=== PATIENT | male | born 1965 | race African-American/Black ===

== ENCOUNTER 2017-05-08 13:27 | Inpatient (IN) | payer SELFPAY ==
[2017-05-08] VITALS (13 sets, daily range): BP systolic 142–181; BP diastolic 76–131; PULSE 79–154; RESP 20–24; TEMP 98.7; O2SAT 88–98
[~2017-05-08] VITALS: Ht 182.9 cm; Wt 144.0 kg
[~2017-05-08 13:27] MED LIST: AZIT250T3 PO; CEFT500T3 PO; HYDR25TA5 PO; LISI-515 PO; PRED10PA PO
[2017-05-08] MEDS ORDERED: SODIUM CHLORIDE 0.9% FLUSH 10 ML FLUSH IVF PRN (13:45)
[2017-05-08] MEDS ORDERED: DILTIAZEM HCL 25 MG/5 ML VIAL IV ONE ×2 (13:45)
--- NOTE | 2017-05-08 14:13 | RADRPT ---
EXAM DATE/TIME: 05/08/2017 13:53 [facility] COMPARISON: CHEST PA & LAT, May 12, 2016, 6:48. INDICATIONS : Chest pain. MEDICAL HISTORY : None. SURGICAL HISTORY : None. ENCOUNTER: Initial ACUITY: 1 day PAIN SCORE: 10/10 LOCATION: Bilateral chest FINDINGS: A single view of the chest demonstrates the lungs to be symmetrically aerated without evidence of mas s, infiltrate or effusion. There is some prominence of the pulmonary vasculature suggestive of pulmon dinorah venous congestion. There is moderate cardiomegaly. This is not significantly changed compared to the prior exam. The bony structures are stable.. CONCLUSION: 1. Pulmonary venous congestion 2. Moderate stable cardiomegaly. David Phan MD on May 08, 2017 at 14:11 Board Certified Radiologist. This report was verified electronically.
[2017-05-08 14:19] LABS: AUTOMATED NEUTROPHIL # 9.7 TH/MM3 (1.8-7.7); BASOPHIL # 0.1 TH/MM3 (0-0.2); BASOPHIL % 0.5 % (0.0-2.0); EOSINOPHIL # 0.1 TH/MM3 (0-0.4); EOSINOPHIL % 0.5 % (0.0-4.0); HEMATOCRIT 40.7 % (39.0-51.0); HEMO FLAGS DIFF FINAL; LYMPH % 13.1 % (9.0-44.0); LYMPHOCYTE # 1.7 TH/MM3 (1.0-4.8); MEAN CELL VOLUME 81.8 FL (80.0-100.0); MEAN CORPUSCULAR HEMOGLOBIN 25.1 PG (27.0-34.0); MEAN CORPUSCULAR HGB CONC 30.7 % (32.0-36.0); MONO % 10.1 % (0.0-8.0); NEUT % 75.8 % (16.0-70.0); PLATELET COUNT 406 TH/MM3 (150-450); RED BLOOD COUNT 4.98 MIL/MM3 (4.50-5.90); RED CELL DISTRIBUTION WIDTH 14.7 % (11.6-17.2); WHITE BLOOD COUNT 12.7 TH/MM3 (4.0-11.0)
[2017-05-08 14:29] LABS: APTT (PATIENT) 24.9 SEC (24.3-30.1); INTERNATIONAL NORMALIZED RATIO 1.2 RATIO
[2017-05-08 14:41] LABS: ANION GAP 4 MEQ/L (5-15); BICARBONATE 34.9 MEQ/L (21.0-32.0); BLOOD UREA NITROGEN 15 MG/DL (7-18); CHLORIDE 102 MEQ/L (98-107); GLOMERULAR FILTRATION RATE 68 ML/MIN (>89); MAGNESIUM 2.3 MG/DL (1.5-2.5); POTASSIUM 4.2 MEQ/L (3.5-5.1); SODIUM (NA) 141 MEQ/L (136-145)
[2017-05-08 14:46] LABS: CREATINE KINASE 223 U/L (39-308)
[2017-05-08 14:58] LABS: CKMB 3.4 NG/ML (0.5-3.6)
--- NOTE | 2017-05-08 15:26 | PD ---
HPI Chief Complaint: Respiratory Symptoms Time Seen by Provider: 13:43 Travel History International Travel<30 days: No Contact w/Intl Traveler<30days: No Traveled to known affect area: No History of Present Illness HPI 51-year-old male arrives with a complaint of chest pain and shortness of breath. Duration 3 days. He reports orthopnea and dyspnea on exertion. The orthopnea is chronic in nature for the patient. He also notes what he believes to be a generalized increase in lower extremity swelling for him of unknown acuity. He denies follow-up with the doctor/primary care. He was last seen here about 2 years ago and has now seen a doctor since. No additional complaint. No fever or coughing. No smoking history. PFSH Past Medical History Cancer: No Cardiovascular Problems: Yes Congestive Heart Failure: Yes Coronary Artery Disease: No Diabetes: No Endocrine: No Genitourinary: No Immune Disorder: No Musculoskeletal: No Neurologic: No Psychiatric: No Reproductive: No Respiratory: Yes ?: Not Social History Alcohol Use: No Tobacco Use: No Substance Use: Yes (MARIJUANA) Allergies-Medications (Allergen,Severity, Reaction): Coded Allergies: No Known Allergies (Unverified , 05/11/16) Reported Meds & Prescriptions Reported Meds & Active Scripts Active Prednisone (21) 10 mg tab Dose Pack (Prednisone) 10 Mg Pack 10 Mg PO DIRECTED Ceftin (Cefuroxime Axetil) 500 Mg Tab 500 Mg PO BID Azithromycin 250 Mg Tab 250 Mg PO DAILY Lisinopril 20 Mg Tab 40 Mg PO DAILY Hydrochlorothiazide 25 Mg Tab 25 Mg PO DAILY Review of Systems Except as stated in HPI: all other systems reviewed are Neg General / Constitutional: No: Fever Physical Exam Narrative GENERAL: 51-year-old male well-nourished well-developed SKIN: Warm and dry. HEAD: Atraumatic. Normocephalic. EYES: Pupils equal and round. No scleral icterus. No injection or drainage. ENT: No nasal bleeding or discharge. Mucous membranes pink and moist. NECK: Trachea midline. No JVD. CARDIOVASCULAR: Regular rate and rhythm. RESPIRATORY: Full sentences. The lungs sound clear. GASTROINTESTINAL: Abdomen soft, non-tender, nondistended. Hepatic and splenic margins not palpable. MUSCULOSKELETAL: Minimal edema of the bilateral lower extremities. No erythema or marked asymmetry. NEUROLOGICAL: Awake and alert. No obvious cranial nerve deficits. Motor grossly within normal limits. Five out of 5 muscle strength in the arms and legs. Normal speech. PSYCHIATRIC: Appropriate mood and affect; insight and judgment normal. Data Data Last Documented VS Vital Signs Date Time Temp Pulse Resp B/P (MAP) Pulse Ox O2 Delivery O2 Flow Rate FiO2 05/08/17 14:29 108 20 143/76 (98) 98 Nasal Cannula 2.00 05/08/17 13:28 98.7 Vital signs reviewed initial heart rate 150 Orders Orders Electrocardiogram (05/08/17 13:43) Basic Metabolic Panel (Bmp) (05/08/17 13:43) B-Type Natriuretic Peptide (05/08/17 13:43) Ckmb (Isoenzyme) Profile (05/08/17 13:43) Complete Blood Count With Diff (05/08/17 13:43) Magnesium (Mg) (05/08/17 13:43) Prothrombin Time / Inr (Pt) (05/08/17 13:43) Act Partial Throm Time (Ptt) (05/08/17 13:43) Troponin I (05/08/17 13:43) Chest, Single Ap (05/08/17 13:43) Ecg Monitoring (05/08/17 13:43) Bilateral Bp Monitoring (05/08/17 13:43) Iv Access Insert/Monitor (05/08/17 13:43) Oximetry (05/08/17 13:43) Oxygen Administration (05/08/17 13:43) Sodium Chloride 0.9% Flush (Ns Flush) (05/08/17 13:45) Diltiazem Inj (Cardizem Inj) (05/08/17 13:45) Diltiazem Inj (Cardizem Inj) (05/08/17 13:45) CKMB (05/08/17 13:40) CKMB% (05/08/17 13:40) Place In Observation (05/08/17 ) Activity Oob With Assistance (05/08/17 15:41) Intake + Output 06,14,22 (05/08/17 15:41) Notify Dr: Other (05/08/17 15:41) Resp Oxygen Kale C Titrat 1-4 L (05/08/17 ) Sodium Chloride 0.9% Flush (Ns Flush) (05/08/17 15:45) Sodium Chloride 0.9% Flush (Ns Flush) (05/08/17 21:00) Diltiazem Inj (Cardizem Inj) (05/08/17 15:45) Ct Pulmonary Angiogram (05/08/17 15:41) Admit Order (Ed Use Only) (05/08/17 ) Medical Staff Physician / Telemetry BRANDON.Q8H (05/08/17 15:41) Vital Signs (Adult) Q4H (05/08/17 15:41) Diet Npo (05/08/17 Dinner) Activity Bed Rest (05/08/17 15:41) Labs Laboratory Tests Test 05/08/17 13:40 White Blood Count 12.7 TH/MM3 Red Blood Count 4.98 MIL/MM3 Hemoglobin 12.5 GM/DL Hematocrit 40.7 % Mean Corpuscular Volume 81.8 FL Mean Corpuscular Hemoglobin 25.1 PG Mean Corpuscular Hemoglobin Concent 30.7 % Red Cell Distribution Width 14.7 % Platelet Count 406 TH/MM3 Mean Platelet Volume 7.6 FL Neutrophils (%) (Auto) 75.8 % Lymphocytes (%) (Auto) 13.1 % Monocytes (%) (Auto) 10.1 % Eosinophils (%) (Auto) 0.5 % Basophils (%) (Auto) 0.5 % Neutrophils # (Auto) 9.7 TH/MM3 Lymphocytes # (Auto) 1.7 TH/MM3 Monocytes # (Auto) 1.3 TH/MM3 Eosinophils # (Auto) 0.1 TH/MM3 Basophils # (Auto) 0.1 TH/MM3 CBC Comment DIFF FINAL Differential Comment Prothrombin Time 12.0 SEC Prothromb Time International Ratio 1.2 RATIO Activated Partial Thromboplast Time 24.9 SEC Blood Urea Nitrogen 15 MG/DL Creatinine 1.33 MG/DL Random Glucose 83 MG/DL Calcium Level 8.4 MG/DL Magnesium Level 2.3 MG/DL Sodium Level 141 MEQ/L Potassium Level 4.2 MEQ/L Chloride Level 102 MEQ/L Carbon Dioxide Level 34.9 MEQ/L Anion Gap 4 MEQ/L Estimat Glomerular Filtration Rate 68 ML/MIN Total Creatine Kinase 223 U/L Creatine Kinase MB 3.4 NG/ML Troponin I 0.06 NG/ML B-Type Natriuretic Peptide 95 PG/ML MDM Medical Decision Making Medical Screen Exam Complete: Yes Emergency Medical Condition: Yes Medical Record Reviewed: Yes Differential Diagnosis NSTEMI, unstable angina, coronary vasospasm, PE, PTX, aortic dissection, pericarditis, myocarditis, endocarditis, PNA, esophageal disease, aneurysm, musculoskeletal etiologies, anxiety, cocaine/sympathomimetic abuse Narrative Course Patient has atrial fibrillation or possibly atrial flutter. He received diltiazem 20 mg followed by diltiazem 15 mg. Heart rate decreased to about 100 after the first dose and then increased to about 120 and then went back up to 150. A drip started. The patient will be admitted for continuous diltiazem infusion. CBC & BMP Diagram 05/08/17 13:40 Calcium Level 8.4 L, Magnesium Level 2.3 Last 24 hours Impressions Chest X-Ray 05/08/17 1343 Signed Impressions: Service Date/Time: Monday, May 08, 2017 13:53 - CONCLUSION: 1. Pulmonary venous congestion 2. Moderate stable cardiomegaly. David Phan MD Case discussed with Dr. Mcgill for [facility] Critical Care Narrative Aggregate critical care time was 45 minutes. Time to perform other separately billable procedures was not included in the critical care time. My time did not include minutes spent treating any other patients simultaneously or on activities that did not directly contribute to the patient's treatment. The services I provided to this patient were to treat and/or prevent clinically significant deterioration that could result in: Dysrhythmia, cardiopulmonary arrest I provided critical care services requiring my management, as noted below: Chart data review, documentation time, medication orders and management, vital sign assessments/reviewing monitor data, ordering and reviewing lab tests, ordering and interpreting/reviewing x-rays and diagnostic studies, care of the patient and discussion of the patient with the admitting physicians. Diagnosis Primary Impression: Atrial flutter Qualified Codes: I48.92 - Unspecified atrial flutter Additional Impression: Elevated troponin Admitting Information Admitting Physician Requests: Admit Dylon Lyon MD May 08, 2017 15:26
[2017-05-08] MEDS ORDERED: SODIUM CHLORIDE 0.9% FLUSH 10 ML FLUSH IV FLUSH PRN (15:45)
[2017-05-08] MEDS ORDERED: IOHEXOL 350 MG/ML 10 ML VIAL (for RAD DIAG) IVCONTRAST ONE (15:45)
[2017-05-08] MEDS ORDERED: DILTIAZEM INJ 125 MG in SODIUM CHLORIDE 0.9% INJ 100 ML IV PRN (15:45)
[2017-05-08] MEDS ORDERED: NALOXONE HCL 0.4 MG/ML AMP IV PUSH PRN (16:15)
[2017-05-08] MEDS ORDERED: ASPIRIN EC 325 MG TABEC PO ONE (16:15)
[2017-05-08] MEDS ORDERED: SENNOSIDES 8.6 MG TAB PO PRN (16:15)
[2017-05-08] MEDS ORDERED: LACTULOSE SYRUP 20 GM/30 ML CUP PO PRN (16:15)
[2017-05-08] MEDS ORDERED: ACETAMINOPHEN 325 MG TAB PO PRN ×2 (16:15)
[2017-05-08] MEDS ORDERED: RESP: ALBUTEROL 0.63 MG/3 ML NEB (PRN) NEB (16:15)
[2017-05-08] MEDS ORDERED: NITROGLYCERIN 0.4 MG SL 25 TABS/BTL SL PRN (16:15)
[2017-05-08] MEDS ORDERED: BISACODYL 10 MG SUPP RECTAL PRN (16:15)
[2017-05-08] MEDS ORDERED: ONDANSETRON HCL 4 MG/2 ML VIAL IVP PRN (16:15)
[2017-05-08] MEDS ORDERED: FUROSEMIDE 40 MG/4 ML VIAL IV PUSH ONE (16:15)
--- NOTE | 2017-05-08 16:15 | HHI.HP ---
[facility] No Primary Care Physician Admission Diagnosis Afib RVR; Elevated Tn Diagnoses: Chief Complaint: Chest pain and shortness of breath Travel History International Travel<30 Days: No Contact w/Intl Traveler <30 Da: No Traveled to Known Affected Are: No History of Present Illness This is a 51-year-old male with a history of morbid obesity and COPD. He presents to the emergency department complaining of chest pain and shortness of breath. States he has three-day history of intermittent right sided sharp moderate to severe exertional chest pain lasting for a few minutes without radiation and associated nausea, palpitations, dizziness and diaphoresis. He also has chronic dyspnea on exertion worse lately associated with orthopnea. He also has chronic bilateral lower extremity swelling. No fever and chills. He also started having productive cough with whitish phlegm and wheezing. All other systems reviewed negative. In the emergency department, EKG shows atrial flutter with RVR and received IV diltiazem 20 mg followed by 15 mg still in RVR. Denies illicit drug use except marijuana Review of Systems Except as stated in HPI: all other systems reviewed are Neg Past Family Social History Past Medical History as previously mentioned Past Surgical History Denies Reported Medications None Allergies: Coded Allergies: No Known Allergies (Unverified , 05/11/16) Family History Mother with CAD and stroke Social History Smokes marijuana occasional alcohol use Physical Exam Vital Signs Vital Signs Date Time Temp Pulse Resp B/P (MAP) Pulse Ox O2 Delivery O2 Flow Rate FiO2 05/08/17 14:29 108 20 143/76 (98) 98 Nasal Cannula 2.00 05/08/17 13:57 123 20 176/111 (132) 98 Nasal Cannula 2.00 154/94 (114) 05/08/17 13:54 98 Nasal Cannula 2.00 05/08/17 13:47 98 Nasal Cannula 2.00 05/08/17 13:43 154 22 181/120 (140) 90 05/08/17 13:28 98.7 153 24 181/131 (148) 88 Physical Exam GENERAL: This is an obese, well-developed patient, in no apparent distress. SKIN: No rashes, ecchymoses or lesions. Cool and dry. HEAD: Atraumatic. Normocephalic. No temporal or scalp tenderness. EYES: Pupils equal round and reactive. Extraocular motions intact. No scleral icterus. No injection or drainage. ENT: Nose without bleeding, purulent drainage or septal hematoma. Throat without erythema, tonsillar hypertrophy or exudate. Uvula midline. Airway patent. NECK: Trachea midline. JVD difficult to evaluate secondary to thick neck. Supple, nontender, no meningeal signs. CARDIOVASCULAR: Distant heart sounds tachycardic RESPIRATORY: Decreased Breath sounds equal bilaterally. No wheezes, rales, or rhonchi. GASTROINTESTINAL: Abdomen soft, non-tender, nondistended. No guarding. Has a body wall edema MUSCULOSKELETAL: Extremities without clubbing, cyanosis but with bilateral lower extremity pitting edema. No joint tenderness, effusion, or edema noted. No calf tenderness. Negative Homans sign bilaterally. NEUROLOGICAL: Awake and alert. Cranial nerves II through XII intact. Motor and sensory grossly within normal limits. Five out of 5 muscle strength in all muscle groups. Normal speech. Laboratory Laboratory Tests Test 05/08/17 13:40 White Blood Count 12.7 Red Blood Count 4.98 Hemoglobin 12.5 Hematocrit 40.7 Mean Corpuscular Volume 81.8 Mean Corpuscular Hemoglobin 25.1 Mean Corpuscular Hemoglobin Concent 30.7 Red Cell Distribution Width 14.7 Platelet Count 406 Mean Platelet Volume 7.6 Neutrophils (%) (Auto) 75.8 Lymphocytes (%) (Auto) 13.1 Monocytes (%) (Auto) 10.1 Eosinophils (%) (Auto) 0.5 Basophils (%) (Auto) 0.5 Neutrophils # (Auto) 9.7 Lymphocytes # (Auto) 1.7 Monocytes # (Auto) 1.3 Eosinophils # (Auto) 0.1 Basophils # (Auto) 0.1 CBC Comment DIFF FINAL Differential Comment Prothrombin Time 12.0 Prothromb Time International Ratio 1.2 Activated Partial Thromboplast Time 24.9 Blood Urea Nitrogen 15 Creatinine 1.33 Random Glucose 83 Calcium Level 8.4 Magnesium Level 2.3 Sodium Level 141 Potassium Level 4.2 Chloride Level 102 Carbon Dioxide Level 34.9 Anion Gap 4 Estimat Glomerular Filtration Rate 68 Total Creatine Kinase 223 Creatine Kinase MB 3.4 Troponin I 0.06 B-Type Natriuretic Peptide 95 Result Diagram: 05/08/17 1340 05/08/17 1340 Imaging Last Impressions Chest X-Ray 05/08/17 1343 Signed Impressions: Service Date/Time: Monday, May 08, 2017 13:53 - CONCLUSION: 1. Pulmonary venous congestion 2. Moderate stable cardiomegaly. MD Kisha Wilkes VTE Risk Assessment Caprinbobby VTE Risk Assessment: Mod/High Risk (score >= 2) Caprini Risk Assessment Model Point Value = 1 Point Value = 2 Point Value = 3 Point Value = 5 Age 41-60 Minor surgery BMI > 25 kg/m2 Swollen legs Varicose veins or History of unexplained or recurrent spontaneous Oral contraceptives or hormone replacement Sepsis (< 1 month) Serious lung disease, including pneumonia (< 1 month) Abnormal pulmonary function Acute myocardial infarction Congestive heart failure (< 1 month) History of inflammatory bowel disease Medical patient at bed rest Age 61-74 Arthroscopic surgery Major open surgery (> 45 min) Laparoscopic surgery (> 45 min) Malignancy Confined to bed (> 72 hours) Immobilizing plaster cast Central venous access Age >= 75 History of VTE Family history of VTE Factor V Leiden Prothrombin [id number] Lupus anticoagulant Anticardiolipin antibodies Elevated serum homocysteine Heparin-induced thrombocytopenia Other congenital or acquired thrombophilia Stroke (< 1 month) Elective arthroplasty Hip, pelvis, or leg fracture Acute spinal cord injury (< 1 month) Prophylaxis Regimen Total Risk Factor Score Risk Level Prophylaxis Regimen 0-1 Low Early ambulation 2 Moderate Order ONE of the following: *Sequential Compression Device (SCD) *Heparin 5000 units SQ BID 3-4 Higher Order ONE of the following medications: *Heparin 5000 units SQ TID *Enoxaparin/Lovenox 40 mg SQ daily (WT < 150 kg, CrCl > 30 mL/min) *Enoxaparin/Lovenox 30 mg SQ daily (WT < 150 kg, CrCl > 10-29 mL/min) *Enoxaparin/Lovenox 30 mg SQ BID (WT < 150 kg, CrCl > 30 mL/min) AND/OR *Sequential Compression Device (SCD) 5 or more Highest Order ONE of the following medications: *Heparin 5000 units SQ TID (Preferred with Epidurals) *Enoxaparin/Lovenox 40 mg SQ daily (WT < 150 kg, CrCl > 30 mL/min) *Enoxaparin/Lovenox 30 mg SQ daily (WT < 150 kg, CrCl > 10-29 mL/min) *Enoxaparin/Lovenox 30 mg SQ BID (WT < 150 kg, CrCl > 30 mL/min) AND *Sequential Compression Device (SCD) Assessment and Plan Problem List: (1) Atrial flutter ICD Code: I48.92 - Unspecified atrial flutter Assessment and Plan This is a 51-year-old male who presents with exertional chest pain for 3 days and worsening dyspnea on exertion associated with orthopnea and bilateral lower extremity swelling. Chest x-ray on independent review shows pulmonary congestion and cardiomegaly. EKG tracing interpreted by me shows atrial flutter with RVR and ST depression in the inferolateral leads New onset atrial flutter with RVR. Start Cardizem drip keep heart rate less than 100. We'll also start Cardizem by mouth. Check TSH, urine drug screen, echocardiogram and follow-up CTA results. [id number] score of 1-2(CHF and possible CAD). Start aspirin. Consult cardiology New onset CHF likely secondary to above. Patient has body wall edema. Start IV diuresis with Lasix Chest pain with troponin elevation likely secondary to above. Start asa and trend enzymes and follow EKG. NTG and IV Morphine prn for CP Acute kidney injury. Nonoliguric. Avoid nephrotoxins. Repeat BMP and magnesium in the morning Leukocytosis likely reactive. Monitor Chronic medical conditions of COPD and obesity. Albuterol as needed. Weight reduction DVT prophylaxis with SCD and subcutaneous heparin Discussed Condition With Patient, daughter and ER staff Anuel Mcgill MD May 08, 2017 16:15
[2017-05-08] MEDS ORDERED: MORPHINE SULFATE 4 MG/ML INJ IV PUSH PRN (16:30)
--- NOTE | 2017-05-08 16:46 | RADRPT ---
EXAM DATE/TIME: 05/08/2017 16:22 [facility] COMPARISON: No previous studies available for comparison. INDICATIONS : Shortness of breath. IV CONTRAST: 74 cc Omnipaque 350 (iohexol) IV RADIATION DOSE: 23.27 CTDIvol (mGy) ; Patient body habitus MEDICAL HISTORY : Congestive hearrt failure. Hypertension. SURGICAL HISTORY : None. ENCOUNTER: Initial ACUITY: 1 week PAIN SCALE: 0/10 LOCATION: chest TECHNIQUE: Volumetric scanning of the chest was performed using a pulmonary embolism protocol MIP images were re constructed. Using automated exposure control and adjustment of the mA and/or kV according to patien t size, radiation dose was kept as low as reasonably achievable to obtain optimal diagnostic quality images. DICOM format image data is available electronically for review and comparison. Follow-up recommendations for detected pulmonary nodules are based at a minimum on nodule size and pa tient risk factors according to Fleischner Society Guidelines. FINDINGS: PULMONARY ARTERIES: No filling defects are seen in the pulmonary arteries through the segmental level. LUNGS: There is a small mild infiltrate in the posterior right lower lung with a small pleural effusion. Lef t lung is grossly clear. PLEURAE: Small right pleural effusion. MEDIASTINUM: Moderate diffuse cardiomegaly. No mediastinal adenopathy. MUSCULOSKELETAL: Within normal limits for patient age. MISCELLANEOUS: The visualized upper abdominal organs demonstrate no acute abnormality. CONCLUSION: 1. No evidence of pulmonary embolism. 2. Mild right lower lung infiltrate with small right effusion. 3. Moderate diffuse cardiomegaly. David Phan MD on May 08, 2017 at 16:43 Board Certified Radiologist. This report was verified electronically.
[2017-05-08] MEDS: DILTIAZEM INJ 125 MG in SODIUM CHLORIDE 0.9% INJ 100 ML IV SCH ×3 (17:04→18:22)
[2017-05-08] MEDS: cefTRIAXone INJ 1,000 MG in SODIUM CHLORIDE 0.9% INJ 100 ML IV SCH (18:00)
[2017-05-08] MEDS: AZITHROMYCIN INJ 500 MG in SODIUM CHLOR 0.9% 250 ML INJ 250 ML IV SCH (18:21)
[2017-05-08] MEDS: DILTIAZEM HCL 30 MG TAB PO SCH ×2 (18:21→21:23)
[2017-05-08] MEDS: HEPARIN SODIUM - SQ 10,000 UNITS/ML VIAL SQ SCH (21:23)
[2017-05-08] MEDS: SODIUM CHLORIDE 0.9% FLUSH 10 ML FLUSH IV FLUSH SCH (21:23)
[2017-05-09] VITALS (24 sets, daily range): BP systolic 134–164; BP diastolic 90–107; PULSE 71–114; RESP 22–28; TEMP 97.5–98.4; O2SAT 93–96
[2017-05-09] MEDS: DILTIAZEM INJ 125 MG in SODIUM CHLORIDE 0.9% INJ 100 ML IV SCH ×2 (01:46→10:50)
[2017-05-09] MEDS: HEPARIN SODIUM - SQ 10,000 UNITS/ML VIAL SQ SCH ×2 (08:36→21:55)
[2017-05-09] MEDS: DILTIAZEM HCL 30 MG TAB PO SCH (08:36)
[2017-05-09] MEDS: ASPIRIN EC 325 MG TABEC PO SCH (08:36)
[2017-05-09] MEDS: FUROSEMIDE 40 MG/4 ML VIAL IV PUSH SCH ×2 (08:37→17:56)
[2017-05-09] MEDS: SODIUM CHLORIDE 0.9% FLUSH 10 ML FLUSH IV FLUSH SCH ×2 (08:37→21:54)
--- NOTE | 2017-05-09 09:20 | PD.CONS ---
HPI Consult Requested By Primary Care Physician No Primary Care Physician History of Present Illness 51-year-old male with past medical history of morbid obesity and COPD. The patient presented with chest pain, shortness of breath, fatigue. The patient and his family at bedside reports that he's been having these symptoms for the past several months. Sometimes he can only walk a short distance before becoming fatigued and dyspneic. He feels the shortness breath is worse than his baseline COPD. Never a smoker. For the past few weeks he has been having a worsening productive cough. (David Baum) Review of Systems Negative except as stated in the history of present illness (David Baum) Past Family Social History Allergies: Coded Allergies: No Known Allergies (Unverified , 05/11/16) Past Medical History COPD Morbid obesity Past Surgical History Denies Reported Medications Reported Meds & Active Scripts Active Prednisone (21) 10 mg tab Dose Pack (Prednisone) 10 Mg Pack 10 Mg PO DIRECTED Ceftin (Cefuroxime Axetil) 500 Mg Tab 500 Mg PO BID Azithromycin 250 Mg Tab 250 Mg PO DAILY Lisinopril 20 Mg Tab 40 Mg PO DAILY Hydrochlorothiazide 25 Mg Tab 25 Mg PO DAILY Active Ordered Medications Current Medications Medications (Trade) Dose Ordered Sig/Patricia Route Start Time Stop Time Status Last Admin (NS Flush) 2 ml UNSCH PRN IV FLUSH 05/08/17 15:45 (NS Flush) 2 ml BID IV FLUSH 05/08/17 21:00 05/09/17 08:37 Diltiazem HCl 125 mg/Sodium Chloride 125 ml @ 5 mls/hr TITRATE IV 05/08/17 16:15 05/09/17 01:46 (Cardizem) 30 mg QID PO 05/08/17 18:00 05/09/17 08:36 (Ecotrin Ec) 325 mg DAILY PO 05/09/17 09:00 05/09/17 08:36 (Lasix Inj) 40 mg BID@,18 IV PUSH 05/09/17 09:00 05/09/17 08:37 (Nitrostat Sl) 0.4 mg Q5M PRN SL 05/08/17 16:15 (Albuterol Neb) 0.63 mg Q4HR NEB PRN NEB 05/08/17 16:15 (Heparin Inj) 5,000 units Q12HR SQ 05/08/17 21:00 05/09/17 08:36 (Tylenol) 650 mg Q4H PRN PO 05/08/17 16:15 (Zofran Inj) 4 mg Q6H PRN IVP 05/08/17 16:15 (Tylenol) 650 mg Q6H PRN PO 05/08/17 16:15 (Narcan Inj) 0.4 mg UNSCH PRN IV PUSH 05/08/17 16:15 (Senokot) 17.2 mg Q12H PRN PO 05/08/17 16:15 (Dulcolax Supp) 10 mg DAILY PRN RECTAL 05/08/17 16:15 (Lactulose Liq) 30 ml DAILY PRN PO 05/08/17 16:15 (Morphine Inj) 1 mg Q3H PRN IV PUSH 05/08/17 16:30 Ceftriaxone Sodium 1000 mg/ Sodium Chloride 100 ml @ 200 mls/hr Q24H IV 05/08/17 18:00 Azithromycin 500 mg/Sodium Chloride 250 ml @ 250 mls/hr Q24H IV 05/08/17 18:00 05/08/17 18:21 Family History Mother with CAD and stroke Social History Smokes marijuana Occasional alcohol use (David Baum) Physical Exam Vital Signs Vital Signs Date Time Temp Pulse Resp B/P (MAP) Pulse Ox O2 Delivery O2 Flow Rate FiO2 05/09/17 08:15 72 05/09/17 07:53 97.7 77 28 134/99 (111) 96 05/09/17 07:53 96 Room Air 4.00 05/09/17 07:02 72 05/09/17 06:00 96 05/09/17 05:00 100 05/09/17 04:00 98 05/09/17 04:00 Simple Mask 7.00 05/09/17 04:00 98.2 98 22 155/97 (116) 93 05/09/17 02:00 106 05/09/17 01:46 110 161/91 05/09/17 01:00 108 05/09/17 00:00 Simple Mask 7.00 05/09/17 00:00 98.4 110 22 164/107 (126) 93 05/09/17 00:00 110 05/09/17 00:00 Simple Mask 7.00 05/08/17 23:50 96 Simple Mask 7.00 05/08/17 23:00 98 05/08/17 22:00 79 05/08/17 21:00 89 05/08/17 20:00 Simple Mask 7.00 05/08/17 20:00 99 05/08/17 20:00 98.7 99 22 151/90 (110) 92 05/08/17 19:38 05/08/17 18:22 150 147/90 05/08/17 17:48 150 20 142/92 (109) 98 2.00 05/08/17 17:47 150 142/92 05/08/17 17:04 151 150/100 05/08/17 16:47 151 20 150/100 (117) 98 Nasal Cannula 2.00 05/08/17 16:07 98 Nasal Cannula 2.00 05/08/17 14:29 108 20 143/76 (98) 98 Nasal Cannula 2.00 05/08/17 13:57 123 20 176/111 (132) 98 Nasal Cannula 2.00 154/94 (114) 05/08/17 13:54 98 Nasal Cannula 2.00 05/08/17 13:47 98 Nasal Cannula 2.00 05/08/17 13:43 154 22 181/120 (140) 90 05/08/17 13:28 98.7 153 24 181/131 (148) 88 Physical Exam GENERAL: Well-developed well-nourished. Morbidly obese. In no acute distress. NECK: No carotid bruits. No JVD. CARDIOVASCULAR: Irregular, controlled rate and rhythm. No murmur appreciated. RESPIRATORY: No accessory muscle use. Clear to auscultation. Breath sounds equal bilaterally. MUSCULOSKELETAL: No clubbing or cyanosis. No edema. NEUROLOGICAL: Awake and alert. Normal speech. Laboratory Laboratory Tests Test 05/08/17 13:40 05/08/17 17:50 05/08/17 20:20 White Blood Count 12.7 Red Blood Count 4.98 Hemoglobin 12.5 Hematocrit 40.7 Mean Corpuscular Volume 81.8 Mean Corpuscular Hemoglobin 25.1 Mean Corpuscular Hemoglobin Concent 30.7 Red Cell Distribution Width 14.7 Platelet Count 406 Mean Platelet Volume 7.6 Neutrophils (%) (Auto) 75.8 Lymphocytes (%) (Auto) 13.1 Monocytes (%) (Auto) 10.1 Eosinophils (%) (Auto) 0.5 Basophils (%) (Auto) 0.5 Neutrophils # (Auto) 9.7 Lymphocytes # (Auto) 1.7 Monocytes # (Auto) 1.3 Eosinophils # (Auto) 0.1 Basophils # (Auto) 0.1 CBC Comment DIFF FINAL Differential Comment Prothrombin Time 12.0 Prothromb Time International Ratio 1.2 Activated Partial Thromboplast Time 24.9 Blood Urea Nitrogen 15 Creatinine 1.33 Random Glucose 83 Calcium Level 8.4 Magnesium Level 2.3 Sodium Level 141 Potassium Level 4.2 Chloride Level 102 Carbon Dioxide Level 34.9 Anion Gap 4 Estimat Glomerular Filtration Rate 68 Total Creatine Kinase 223 188 Creatine Kinase MB 3.4 Troponin I 0.06 0.08 B-Type Natriuretic Peptide 95 Thyroid Stimulating Hormone 3rd Gen 1.710 Urine Opiates Screen NEG Urine Barbiturates Screen NEG Urine Amphetamines Screen NEG Urine Benzodiazepines Screen NEG Urine Cocaine Screen POS Urine Cannabinoids Screen POS Date/Time Source Procedure Growth Status 05/08/17 20:25 Blood Peripheral Aerobic Blood Culture Pending Received 05/08/17 20:25 Blood Peripheral Anaerobic Blood Culture Pending Received 05/08/17 17:50 Urine Random Urine Legionella Antigen - Final PRESUMPTIVE NEGATIVE FOR LEGIONELLA P... Complete 05/08/17 17:50 Urine Random Urine Streptococcus pneumoniae Antigen (M - Final PRESUMPTIVE NEGATIVE FOR STREPTOCOCCU... Complete (David Baum) Result Diagram: 05/08/17 1340 05/08/17 [address] Angiography 05/08/17 1541 Signed Impressions: Service Date/Time: Monday, May 08, 2017 16:22 - CONCLUSION: 1. No evidence of pulmonary embolism. 2. Mild right lower lung infiltrate with small right effusion. 3. Moderate diffuse cardiomegaly. David Phan MD Chest X-Ray 05/08/17 1343 Signed Impressions: Service Date/Time: Monday, May 08, 2017 13:53 - CONCLUSION: 1. Pulmonary venous congestion 2. Moderate stable cardiomegaly. David Phan MD (David Baum) Assessment and Plan Assessment and Plan 51-year-old male with past medical history of morbid obesity and COPD. The patient presented with chest pain, shortness of breath, fatigue. Found to be in new onset atrial flutter. Being treated with antibiotics for pneumonia. New onset atrial flutter with RVR: HR rate better controlled currently. On Cardizem GGT and oral Cardizem. Consider metoprolol, however caution with cocaine positive. Echocardiogram pending. Chadsvasc currently 0. Pneumonia: BNP 95. Chest CT with right lower lobe infiltrate and small right effusion. Continue antibiotics per primary team. Elevated troponin: Troponin 0.06, 0.08, minimally elevated, seems more demand mediated secondary to the above. (David Baum) Assessment and Plan afib RVR - PO cardizem. wean gtt. elevated trop demand mediated probable lexiscan tomorrow when breathing and HR improved CHADSVASC =1 HTN. ASA 325. NPO p MN cardizem/digoxin (Konrad Morin MD) David Baum May 09, 2017 09:20 Konrad Morin MD May 09, 2017 10:23
--- NOTE | 2017-05-09 09:55 | HHI.PR ---
Subjective Remarks Follow-up pneumonia. Still having shortness of breath. Heart rate under control on Cardizem drip. Discussed with cardiology PA. Discussed with RN. Seen with family patient consented Objective Vitals Vital Signs Date Time Temp Pulse Resp B/P (MAP) Pulse Ox O2 Delivery O2 Flow Rate FiO2 05/09/17 09:06 114 05/09/17 08:15 72 05/09/17 07:53 97.7 77 28 134/99 (111) 96 05/09/17 07:53 96 Room Air 4.00 05/09/17 07:02 72 05/09/17 06:00 96 05/09/17 05:00 100 05/09/17 04:00 98 05/09/17 04:00 Simple Mask 7.00 05/09/17 04:00 98.2 98 22 155/97 (116) 93 05/09/17 02:00 106 05/09/17 01:46 110 161/91 05/09/17 01:00 108 05/09/17 00:00 Simple Mask 7.00 05/09/17 00:00 98.4 110 22 164/107 (126) 93 05/09/17 00:00 110 05/09/17 00:00 Simple Mask 7.00 05/08/17 23:50 96 Simple Mask 7.00 05/08/17 23:00 98 05/08/17 22:00 79 05/08/17 21:00 89 05/08/17 20:00 Simple Mask 7.00 05/08/17 20:00 99 05/08/17 20:00 98.7 99 22 151/90 (110) 92 05/08/17 19:38 05/08/17 18:22 150 147/90 05/08/17 17:48 150 20 142/92 (109) 98 2.00 05/08/17 17:47 150 142/92 05/08/17 17:04 151 150/100 05/08/17 16:47 151 20 150/100 (117) 98 Nasal Cannula 2.00 05/08/17 16:07 98 Nasal Cannula 2.00 05/08/17 14:29 108 20 143/76 (98) 98 Nasal Cannula 2.00 05/08/17 13:57 123 20 176/111 (132) 98 Nasal Cannula 2.00 154/94 (114) 05/08/17 13:54 98 Nasal Cannula 2.00 05/08/17 13:47 98 Nasal Cannula 2.00 05/08/17 13:43 154 22 181/120 (140) 90 05/08/17 13:28 98.7 153 24 181/131 (148) 88 I/O 05/08/17 05/08/17 05/08/17 05/09/17 05/09/17 05/09/17 07:00 15:00 23:00 07:00 15:00 23:00 Intake Total 1645 ml Output Total 900 ml Balance 745 ml Intake Oral 1500 ml IV Total 145 ml Output Urine Total 900 ml # Bowel Movements 0 Result Diagram: 05/08/17 1340 05/08/17 [address] Angiography 05/08/17 1541 Signed Impressions: Service Date/Time: Monday, May 08, 2017 16:22 - CONCLUSION: 1. No evidence of pulmonary embolism. 2. Mild right lower lung infiltrate with small right effusion. 3. Moderate diffuse cardiomegaly. David Phan MD Chest X-Ray 05/08/17 1343 Signed Impressions: Service Date/Time: Monday, May 08, 2017 13:53 - CONCLUSION: 1. Pulmonary venous congestion 2. Moderate stable cardiomegaly. David Phan MD Objective Remarks GENERAL: This is an obese, well-developed patient, in no apparent distress. SKIN: No rashes, ecchymoses or lesions. Cool and dry. CARDIOVASCULAR: Distant heart sounds regular rate and rhythm RESPIRATORY: Decreased Breath sounds equal bilaterally. No wheezes, rales, or rhonchi. GASTROINTESTINAL: Abdomen soft, non-tender, nondistended. No guarding. Has a body wall edema MUSCULOSKELETAL: Extremities without clubbing, cyanosis but with bilateral lower extremity pitting edema. No joint tenderness, effusion, or edema noted. No calf tenderness. Negative Homans sign bilaterally. NEUROLOGICAL: Awake and alert. Cranial nerves II through XII intact. Motor and sensory grossly within normal limits. Five out of 5 muscle strength in all muscle groups. Normal speech. Procedures none A/P Problem List: (1) Atrial flutter ICD Code: I48.92 - Unspecified atrial flutter Assessment and Plan This is a 51-year-old male who presents with exertional chest pain for 3 days and worsening dyspnea on exertion associated with orthopnea and bilateral lower extremity swelling. Chest x-ray on independent review shows pulmonary congestion and cardiomegaly. EKG tracing interpreted by me shows atrial flutter with RVR and ST depression in the inferolateral leads New onset atrial flutter with RVR. Now CVR wean and discontinue Cardizem drip keep heart rate less than 100. Continue Cardizem by mouth. Follow-up echocardiogram. [id number] score of 1(HTN). Ct aspirin. Consulted cardiology New onset CHF likely secondary to above. BNP low 2/2 obesity. Patient has body wall edema. Continue IV diuresis with Lasix Chest pain with troponin elevation likely secondary to above. Per card, troponin bump is demand mediated. Continue aspirin. NTG and IV Morphine prn for CP. For Lexiscan if breathing and heart rate better Acute kidney injury. Nonoliguric. Avoid nephrotoxins. Repeat BMP and magnesium pending Leukocytosis likely reactive. Monitor Community-acquired pneumonia with sepsis and hypoxia. Continue IV Rocephin and Zithromax and follow up sputum culture, urinary pneumococcal and Legionella antigen and blood cultures. Wean oxygen to keep saturation at least 92% currently on 3 L Marijuana and cocaine abuse. Counseled. Cautious use of beta marina Chronic medical conditions of COPD and obesity. Albuterol as needed. Weight reduction DVT prophylaxis with SCD and subcutaneous heparin Discharge Planning stable for discharge still requiring IV diuresis and IV antibiotics for Lexiscan in the morning Problem Qualifiers (1) Atrial flutter: Qualified Codes: I48.92 - Unspecified atrial flutter Anuel Mcgill MD May 09, 2017 09:55
[2017-05-09] MEDS ORDERED: DIGOXIN 0.5 MG/2 ML VIAL IV PUSH ONE (10:30)
[2017-05-09] MEDS: DILTIAZEM HCL 60 MG TAB PO SCH ×3 (12:47→21:55)
--- NOTE | 2017-05-09 12:58 | EKG ---
Date Performed: 05/08/2017 Time Performed: 13:39:09 PTAGE: 51 years EKG: Atrial flutter/tachycardia with rapid ventricular response Moderate ST Depression PREVIOUS TRACING : 05/11/2016 10.01 Since previous tracing, there is a rhythm change from Sinus rhythm to atrial flutter. ST changes are new and may be rate related. DOCTOR: Keith Levine Interpretating Date/Time 05/09/2017 12:57:01
--- NOTE | 2017-05-09 13:00 | EKG ---
Date Performed: 05/08/2017 Time Performed: 22:03:50 PTAGE: 51 years EKG: Atrial flutter with controlled ventricular response Nonspecific T-wave change Low voltage i n limb leads Abnormal ECG PREVIOUS TRACING 05/08/17 Since previous tracing, the ventricular response to the atrial flutte r is slower. DOCTOR: Keith Levine Interpretating Date/Time 05/09/2017 12:58:37
--- NOTE | 2017-05-09 13:00 | EKG ---
Date Performed: 05/09/2017 Time Performed: 01:47:48 PTAGE: 51 years EKG: Atrial flutter with rapid ventricular response Poor R wave progression - probable normal va riant Lateral T wave changes are nonspecific Low QRS voltages in limb leads Abnormal ECG PREVIOUS TRACING 05/08/17 Compared to prior tracing no significant change DOCTOR: Keith Levine Interpretating Date/Time 05/09/2017 12:59:00
--- NOTE | 2017-05-09 14:34 | ECHRPT ---
Indication: a fib flutter CONCLUSIONS Technically difficult study. The left ventricular systolic function is severely reduced with an estimated ejection fraction in th e range of 30-35%. There is mild tricuspid valve regurgitation. BP: 155 / 97 HR: 116 Rhythm: MEASUREMENTS (Male / Female) Normal Values Technical Quality:Technically difficult study 2D ECHO LV Diastolic Diameter PLAX 5.1 cm 4.2 - 5.9 / 3.9 - 5.3 cm LV Systolic Diameter PLAX 4.4 cm IVS Diastolic Thickness 1.3 cm 0.6 - 1.0 / 0.6 - 0.9 cm LVPW Diastolic Thickness 1.1 cm 0.6 - 1.0 / 0.6 - 0.9 cm LV Relative Wall Thickness 0.5 RV Internal Dim ED PLAX 3.1 cm LA Systolic Diameter LX 4.7 cm 3.0 - 4.0 / 2.7 - 3.8 cm M-MODE Aortic Root Diameter MM 3.1 cm AV Cusp Separation MM 2.0 cm DOPPLER AV Peak Velocity 178.0 cm/s AV Peak Gradient 12.7 mmHg Mitral E Point Velocity 80.2 cm/s TR Peak Velocity 297.0 cm/s TR Peak Gradient 35.3 mmHg Right Atrial Pressure 10.0 mmHg Pulmonary Artery Systolic Pressu 45.3 mmHg Right Ventricular Systolic Press 45.3 mmHg FINDINGS LEFT VENTRICLE Mildly dilated left ventricle. Wall thickness is measured at the upper limits of normal. The left ventricular systolic function is severely reduced with an estimated ejection fraction in th e range of 30-35%. RIGHT VENTRICLE Normal right ventricular size. LEFT ATRIUM The left atrial size is mildly dilated. RIGHT ATRIUM The right atrial size is normal. ATRIAL SEPTUM Normal atrial septal thickness. AORTA The aortic root and proximal ascending aorta are normal in size on limited imaging. MITRAL VALVE Structurally normal mitral valve. No mitral valve stenosis or regurgitation. AORTIC VALVE Trileaflet aortic valve. No aortic valve stenosis or regurgitation. TRICUSPID VALVE Grossly normal tricuspid valve. There is mild tricuspid valve regurgitation. There is estimated mild pulmonary hypertension present (45 mmHg). PULMONARY VALVE No pulmonary valve regurgitation or stenosis. VESSELS The inferior vena cava is normal in size. PERICARDIUM No pericardial effusion. Dhiraj Lyon DO (Electronically Signed) Final Date:09 May 2017 14:33
[2017-05-09] MEDS: AZITHROMYCIN INJ 500 MG in SODIUM CHLOR 0.9% 250 ML INJ 250 ML IV SCH (17:54)
[2017-05-09] MEDS: cefTRIAXone INJ 1,000 MG in SODIUM CHLORIDE 0.9% INJ 100 ML IV SCH (18:57)
[2017-05-10] VITALS (25 sets, daily range): BP systolic 113–168; BP diastolic 74–97; PULSE 70–116; RESP 18–22; TEMP 97.8–99.8; O2SAT 95–97
--- NOTE | 2017-05-10 07:43 | PD.CARD.PN ---
Subjective Subjective Remarks No chest pain. Shortness of breath and coughing improved. Heart rate around 100 on telemetry. The patient is nothing by mouth for stress test today and asking for water. (David Baum) Objective Medications Current Medications Medications (Trade) Dose Ordered Sig/Patricia Route Start Time Stop Time Status Last Admin (NS Flush) 2 ml UNSCH PRN IV FLUSH 05/08/17 15:45 (NS Flush) 2 ml BID IV FLUSH 05/08/17 21:00 05/09/17 21:54 Diltiazem HCl 125 mg/Sodium Chloride 125 ml @ 5 mls/hr TITRATE IV 05/08/17 16:15 05/09/17 10:50 (Ecotrin Ec) 325 mg DAILY PO 05/09/17 09:00 05/09/17 08:36 (Lasix Inj) 40 mg BID@,18 IV PUSH 05/09/17 09:00 05/09/17 17:56 (Nitrostat Sl) 0.4 mg Q5M PRN SL 05/08/17 16:15 (Albuterol Neb) 0.63 mg Q4HR NEB PRN NEB 05/08/17 16:15 (Heparin Inj) 5,000 units Q12HR SQ 05/08/17 21:00 05/09/17 21:55 (Tylenol) 650 mg Q4H PRN PO 05/08/17 16:15 (Zofran Inj) 4 mg Q6H PRN IVP 05/08/17 16:15 (Tylenol) 650 mg Q6H PRN PO 05/08/17 16:15 (Narcan Inj) 0.4 mg UNSCH PRN IV PUSH 05/08/17 16:15 (Senokot) 17.2 mg Q12H PRN PO 05/08/17 16:15 (Dulcolax Supp) 10 mg DAILY PRN RECTAL 05/08/17 16:15 (Lactulose Liq) 30 ml DAILY PRN PO 05/08/17 16:15 (Morphine Inj) 1 mg Q3H PRN IV PUSH 05/08/17 16:30 Ceftriaxone Sodium 1000 mg/ Sodium Chloride 100 ml @ 200 mls/hr Q24H IV 05/08/17 18:00 05/09/17 18:57 Azithromycin 500 mg/Sodium Chloride 250 ml @ 250 mls/hr Q24H IV 05/08/17 18:00 05/09/17 17:54 (Cardizem) 60 mg QID PO 05/09/17 13:00 05/09/17 21:55 (Lanoxin) 0.25 mg DAILY PO 05/10/17 09:00 Vital Signs / I&O Vital Signs Date Time Temp Pulse Resp B/P (MAP) Pulse Ox O2 Delivery O2 Flow Rate FiO2 05/10/17 06:00 70 05/10/17 05:00 90 05/10/17 04:00 101 05/10/17 04:00 98.4 101 22 155/93 (113) 97 05/10/17 03:00 98 05/10/17 02:00 94 05/10/17 01:00 78 05/10/17 00:00 98.0 81 22 149/97 (114) 96 05/10/17 00:00 81 05/09/17 23:00 72 05/09/17 22:00 100 05/09/17 21:00 87 05/09/17 20:00 Nasal Cannula 4.00 05/09/17 20:00 96 05/09/17 20:00 98.0 87 22 158/96 (116) 95 05/09/17 16:30 95 Nasal Cannula 3.00 05/09/17 16:10 97 05/09/17 15:12 97.5 72 22 160/96 (117) 95 05/09/17 15:00 71 05/09/17 14:05 71 05/09/17 13:38 71 05/09/17 12:00 96 05/09/17 11:10 97.7 88 27 157/90 (112) 95 05/09/17 11:00 79 05/09/17 10:50 88 157/90 05/09/17 10:00 96 05/09/17 09:06 114 05/09/17 08:15 72 05/09/17 07:53 97.7 77 28 134/99 (111) 96 05/09/17 07:53 96 Room Air 4.00 I/O 05/09/17 05/09/17 05/09/17 05/10/17 05/10/17 05/10/17 07:00 15:00 23:00 07:00 15:00 23:00 Intake Total 1645 ml 1230 ml 1000 ml Output Total 900 ml 1170 ml 1050 ml Balance 745 ml 60 ml -50 ml Intake Oral 1500 ml 960 ml 1000 ml IV Total 145 ml 270 ml Output Urine Total 900 ml 1170 ml 1050 ml # Voids 1 # Bowel Movements 0 0 Physical Exam GENERAL: Well-developed well-nourished morbidly obese. In no acute distress. NECK: No carotid bruits. No JVD. CARDIOVASCULAR: Irregular rate and rhythm. No murmur appreciated. RESPIRATORY: No accessory muscle use. Clear to auscultation. Diminished breath sounds in the bases. MUSCULOSKELETAL: No clubbing or cyanosis. Trace edema. NEUROLOGICAL: Awake and alert. Normal speech. Imaging Last Impressions CT Angiography 05/08/17 1541 Signed Impressions: Service Date/Time: Monday, May 08, 2017 16:22 - CONCLUSION: 1. No evidence of pulmonary embolism. 2. Mild right lower lung infiltrate with small right effusion. 3. Moderate diffuse cardiomegaly. David Phan MD Chest X-Ray 05/08/17 1343 Signed Impressions: Service Date/Time: Monday, May 08, 2017 13:53 - CONCLUSION: 1. Pulmonary venous congestion 2. Moderate stable cardiomegaly. David Phan MD (David Baum) Assessment and Plan Assessment and Plan 51-year-old male with past medical history of morbid obesity and COPD. The patient presented with chest pain, shortness of breath, fatigue. Found to be in new onset atrial flutter. Being treated with antibiotics for pneumonia. New onset atrial fibrillation/flutter with RVR: HR rate improving. On Cardizem GGT and oral Cardizem, wean drip. Started on digoxin, level pending. Chadsvasc 1 for HTN, aspirin 325 mg. New-onset systolic CHF: Echocardiogram with reduced systolic function, EF 30-35 %. Check Lexiscan. Pneumonia: Chest CT with right lower lobe infiltrate and small right effusion. Continue antibiotics per primary team. Elevated troponin: Troponin 0.06, 0.08, minimally elevated, secondary to the above. (David Baum) Assessment and Plan off cardizem gtt. HR 90-100. titrate oral CCB. cont dig. CHF - diuretic. good UOP stress test today hold on ACEi to allow room for rate limiting medication. If HR better, than can add low dose ACEi. (Konrad Morin MD) David Baum May 10, 2017 07:43 Konrad Morin MD May 10, 2017 08:40
[2017-05-10] MEDS: FUROSEMIDE 40 MG/4 ML VIAL IV PUSH SCH ×2 (08:19→17:53)
[2017-05-10] MEDS: DIGOXIN 0.25 MG TAB PO SCH (08:20)
[2017-05-10] MEDS: DILTIAZEM HCL 60 MG TAB PO SCH (08:21)
[2017-05-10] MEDS: ASPIRIN EC 325 MG TABEC PO SCH (08:21)
[2017-05-10] MEDS: HEPARIN SODIUM - SQ 10,000 UNITS/ML VIAL SQ SCH ×2 (08:23→20:48)
[2017-05-10] MEDS: SODIUM CHLORIDE 0.9% FLUSH 10 ML FLUSH IV FLUSH SCH ×2 (08:23→20:48)
[2017-05-10] MEDS: DILTIAZEM HCL 90 MG TAB PO SCH ×4 (09:00→20:48)
[2017-05-10] MEDS ORDERED: REGADENOSON INJ 0.4 MG/5 ML SYR ONE (10:39)
--- NOTE | 2017-05-10 13:15 | HHI.PR ---
Subjective Remarks Shortness of breath remains. Patient not able to wean off oxygen yet. He has significant exertional dyspnea and is unable to lay flat in bed. Stress test is in process today. Objective Vital Signs Date Time Temp Pulse Resp B/P (MAP) Pulse Ox O2 Delivery O2 Flow Rate FiO2 05/10/17 08:13 Nasal Cannula 4.00 05/10/17 08:11 97.8 95 22 144/87 (106) 96 05/10/17 06:00 70 05/10/17 05:00 90 05/10/17 04:00 101 05/10/17 04:00 98.4 101 22 155/93 (113) 97 05/10/17 03:00 98 05/10/17 02:00 94 05/10/17 01:00 78 05/10/17 00:00 98.0 81 22 149/97 (114) 96 05/10/17 00:00 81 05/09/17 23:00 72 05/09/17 22:00 100 05/09/17 21:00 87 05/09/17 20:00 Nasal Cannula 4.00 05/09/17 20:00 96 05/09/17 20:00 98.0 87 22 158/96 (116) 95 05/09/17 16:30 95 Nasal Cannula 3.00 05/09/17 16:10 97 05/09/17 15:12 97.5 72 22 160/96 (117) 95 05/09/17 15:00 71 05/09/17 14:05 71 05/09/17 13:38 71 I/O 05/09/17 05/09/17 05/09/17 05/10/17 05/10/17 05/10/17 06:59 14:59 22:59 06:59 14:59 22:59 Intake Total 1645 ml 1230 ml 1000 ml Output Total 900 ml 1170 ml 1050 ml Balance 745 ml 60 ml -50 ml Intake Oral 1500 ml 960 ml 1000 ml IV Total 145 ml 270 ml Output Urine Total 900 ml 1170 ml 1050 ml # Voids 1 # Bowel Movements 0 0 Result Diagram: 05/08/17 1340 05/08/17 1340 Objective Remarks GENERAL: NAD, A&Ox3 HEAD: Normocephalic. NECK: Supple, trachea midline. No lymphadenopathy. EYES: No scleral icterus. No injection or drainage. CARDIOVASCULAR: Regular rate and rhythm without murmurs, gallops, or rubs. RESPIRATORY: Breath sounds equal bilaterally. No accessory muscle use. GASTROINTESTINAL: Abdomen soft, non-tender, nondistended. MUSCULOSKELETAL: No cyanosis, or edema. SKIN: Warm and dry. NEURO: No focal neurological deficitis. A/P Problem List: (1) Atrial flutter ICD Code: I48.92 - Unspecified atrial flutter (2) Elevated troponin ICD Code: R74.8 - Abnormal levels of other serum enzymes Status: Acute (3) COPD exacerbation ICD Code: J44.1 - Chronic obstructive pulmonary disease with (acute) exacerbation Status: Acute Assessment and Plan Assessment and Plan 51-year-old male admitted secondary to A. fib RVR with pneumonia A. fib RVR New onset Rate now controlled Status post stress testing today Cardiology following Continue Lasix Chest pain Mild troponin elevation Etiology for these is likely to A. fib RVR Acute kidney injury Avoiding nephrotoxins Follow electrolytes Follow renal function Community-acquired pneumonia Hypoxia Continue IV Rocephin Continue IV Zithromax Follow cultures History of marijuana abuse History of cocaine abuse May be contributory Caution with beta blockers Severe obesity Weight reduction has been recommended COPD Continue oxygen Nebulized treatments as needed DVT prophylaxis SCDs Heparin continued Problem Qualifiers (1) Atrial flutter: Qualified Codes: I48.92 - Unspecified atrial flutter Dylon Batres MD May 10, 2017 13:15
[2017-05-10 13:37] LABS: AUTOMATED NEUTROPHIL # 9.5 TH/MM3 (1.8-7.7); BASOPHIL % 0.2 % (0.0-2.0); EOSINOPHIL % 0.3 % (0.0-4.0); HEMATOCRIT 39.3 % (39.0-51.0); HEMO FLAGS DIFF FINAL; LYMPH % 8.5 % (9.0-44.0); MEAN CELL VOLUME 82.8 FL (80.0-100.0); MEAN CORPUSCULAR HEMOGLOBIN 25.3 PG (27.0-34.0); MEAN CORPUSCULAR HGB CONC 30.5 % (32.0-36.0); MONO % 6.4 % (0.0-8.0); NEUT % 84.6 % (16.0-70.0); PLATELET COUNT 353 TH/MM3 (150-450); RED BLOOD COUNT 4.75 MIL/MM3 (4.50-5.90); RED CELL DISTRIBUTION WIDTH 14.5 % (11.6-17.2); WHITE BLOOD COUNT 11.2 TH/MM3 (4.0-11.0)
[2017-05-10 14:02] LABS: ANION GAP 5 MEQ/L (5-15); AST (GOT) 21 U/L (15-37); BICARBONATE 37.4 MEQ/L (21.0-32.0); BLOOD UREA NITROGEN 16 MG/DL (7-18); CHLORIDE 93 MEQ/L (98-107); GLOMERULAR FILTRATION RATE 71 ML/MIN (>89); MAGNESIUM 2.2 MG/DL (1.5-2.5); POTASSIUM 4.5 MEQ/L (3.5-5.1); SODIUM (NA) 135 MEQ/L (136-145)
[2017-05-10 14:27] LABS: ALKALINE PHOSPHATASE 72 U/L (45-117); ALT (GPT) 40 U/L (12-78); CREATINE KINASE 124 U/L (39-308); DIGOXIN 0.7 NG/ML (0.8-2.0); HDL CHOLESTEROL 36.5 MG/DL (40.0-60.0); LDL CHOLESTEROL 55 MG/DL (0-99); TOTAL BILIRUBIN ADULT 0.6 MG/DL (0.2-1.0)
[2017-05-10] MEDS: cefTRIAXone INJ 1,000 MG in SODIUM CHLORIDE 0.9% INJ 100 ML IV SCH (17:50)
[2017-05-10] MEDS: AZITHROMYCIN INJ 500 MG in SODIUM CHLOR 0.9% 250 ML INJ 250 ML IV SCH (19:37)
[2017-05-11] VITALS (28 sets, daily range): BP systolic 121–189; BP diastolic 77–115; PULSE 60–108; RESP 20–22; TEMP 97.6–100.5; O2SAT 92–98
[2017-05-11 06:29] LABS: AUTOMATED NEUTROPHIL # 11.2 TH/MM3 (1.8-7.7); BASOPHIL % 0.3 % (0.0-2.0); EOSINOPHIL % 0.3 % (0.0-4.0); HEMATOCRIT 38.8 % (39.0-51.0); HEMO FLAGS DIFF FINAL; LYMPH % 12.1 % (9.0-44.0); LYMPHOCYTE # 1.7 TH/MM3 (1.0-4.8); MEAN CELL VOLUME 82.2 FL (80.0-100.0); MEAN CORPUSCULAR HEMOGLOBIN 25.1 PG (27.0-34.0); MEAN CORPUSCULAR HGB CONC 30.5 % (32.0-36.0); MONO % 8.7 % (0.0-8.0); NEUT % 78.6 % (16.0-70.0); PLATELET COUNT 393 TH/MM3 (150-450); RED BLOOD COUNT 4.72 MIL/MM3 (4.50-5.90); RED CELL DISTRIBUTION WIDTH 14.6 % (11.6-17.2); WHITE BLOOD COUNT 14.2 TH/MM3 (4.0-11.0)
[2017-05-11 06:51] LABS: ALT (GPT) 37 U/L (12-78); ANION GAP 2 MEQ/L (5-15); AST (GOT) 18 U/L (15-37); BICARBONATE 38.9 MEQ/L (21.0-32.0); BLOOD UREA NITROGEN 14 MG/DL (7-18); CHLORIDE 95 MEQ/L (98-107); GLOMERULAR FILTRATION RATE 90 ML/MIN (>89); POTASSIUM 4.4 MEQ/L (3.5-5.1); SODIUM (NA) 136 MEQ/L (136-145)
[2017-05-11 06:54] LABS: ALKALINE PHOSPHATASE 73 U/L (45-117); TOTAL BILIRUBIN ADULT 0.6 MG/DL (0.2-1.0)
--- NOTE | 2017-05-11 07:40 | PD.CARD.PN ---
Subjective Subjective Remarks Continued shortness of breath, cough, chest discomfort. In rapid A. fib this morning. Reports good urine output. Received first half stress test yesterday , going for second part today. (David Baum) Objective Medications Current Medications Medications (Trade) Dose Ordered Sig/Patricia Route Start Time Stop Time Status Last Admin (NS Flush) 2 ml UNSCH PRN IV FLUSH 05/08/17 15:45 (NS Flush) 2 ml BID IV FLUSH 05/08/17 21:00 05/10/17 20:48 (Ecotrin Ec) 325 mg DAILY PO 05/09/17 09:00 05/10/17 08:21 (Lasix Inj) 40 mg BID@18 IV PUSH 05/09/17 09:00 05/10/17 17:53 (Nitrostat Sl) 0.4 mg Q5M PRN SL 05/08/17 16:15 (Albuterol Neb) 0.63 mg Q4HR NEB PRN NEB 05/08/17 16:15 (Heparin Inj) 5,000 units Q12HR SQ 05/08/17 21:00 05/10/17 20:48 (Tylenol) 650 mg Q4H PRN PO 05/08/17 16:15 (Zofran Inj) 4 mg Q6H PRN IVP 05/08/17 16:15 (Tylenol) 650 mg Q6H PRN PO 05/08/17 16:15 (Narcan Inj) 0.4 mg UNSCH PRN IV PUSH 05/08/17 16:15 (Senokot) 17.2 mg Q12H PRN PO 05/08/17 16:15 (Dulcolax Supp) 10 mg DAILY PRN RECTAL 05/08/17 16:15 (Lactulose Liq) 30 ml DAILY PRN PO 05/08/17 16:15 (Morphine Inj) 1 mg Q3H PRN IV PUSH 05/08/17 16:30 Ceftriaxone Sodium 1000 mg/ Sodium Chloride 100 ml @ 200 mls/hr Q24H IV 05/08/17 18:00 05/10/17 17:50 Azithromycin 500 mg/Sodium Chloride 250 ml @ 250 mls/hr Q24H IV 05/08/17 18:00 05/10/17 19:37 (Lanoxin) 0.25 mg DAILY PO 05/10/17 09:00 05/10/17 08:20 (Cardizem) 90 mg QID PO 05/10/17 09:00 05/10/17 20:48 Vital Signs / I&O Vital Signs Date Time Temp Pulse Resp B/P (MAP) Pulse Ox O2 Delivery O2 Flow Rate FiO2 05/11/17 07:20 97.9 103 21 189/115 (139) 98 05/11/17 07:17 95 Nasal Cannula 4.00 05/11/17 06:00 92 05/11/17 05:00 97 05/11/17 04:00 104 05/11/17 03:30 100.5 94 20 141/105 (117) 92 05/11/17 03:30 92 Nasal Cannula 4.00 05/11/17 03:00 98 05/11/17 02:00 73 05/11/17 01:00 72 05/11/17 00:00 97 05/10/17 23:00 99.1 112 18 137/85 (102) 95 05/10/17 23:00 95 Nasal Cannula 4.00 05/10/17 23:00 102 05/10/17 22:00 98 05/10/17 21:00 72 05/10/17 20:00 99.8 73 18 113/92 (99) 96 05/10/17 20:00 96 Nasal Cannula 4.00 05/10/17 20:00 96 05/10/17 19:02 Nasal Cannula 4.00 05/10/17 19:00 116 05/10/17 18:00 112 05/10/17 17:00 92 05/10/17 16:37 Nasal Cannula 4.00 05/10/17 16:00 72 05/10/17 15:17 98.2 80 20 113/74 (87) 95 05/10/17 15:00 96 05/10/17 14:00 100 05/10/17 13:00 94 05/10/17 12:51 98.2 90 20 168/87 (114) 95 05/10/17 12:25 76 05/10/17 09:00 94 05/10/17 08:13 Nasal Cannula 4.00 05/10/17 08:11 97.8 95 22 144/87 (106) 96 05/10/17 08:00 94 I/O 05/10/17 05/10/17 05/10/17 05/11/17 05/11/17 05/11/17 07:00 15:00 23:00 07:00 15:00 23:00 Intake Total 1000 ml 1300 ml 480 ml Output Total 1050 ml 900 ml 600 ml Balance -50 ml 400 ml -120 ml Intake Oral 1000 ml 950 ml 480 ml IV Total 350 ml Output Urine Total 1050 ml 900 ml 600 ml # Voids 2 # Bowel Movements 0 1 0 Physical Exam GENERAL: Well-developed well-nourished morbidly obese. Sitting up in a chair and appears mildly uncomfortable. NECK: No carotid bruits. No JVD. CARDIOVASCULAR: Irregular tachycardic rate and irregular rhythm. No murmur appreciated. RESPIRATORY: No accessory muscle use. Clear to auscultation. Diminished breath sounds in the bases. MUSCULOSKELETAL: No clubbing or cyanosis. Trace edema. NEUROLOGICAL: Awake and alert. Normal speech. Laboratory Laboratory Tests Test 05/10/17 13:15 05/11/17 05:19 White Blood Count 11.2 TH/MM3 14.2 TH/MM3 Red Blood Count 4.75 MIL/MM3 4.72 MIL/MM3 Hemoglobin 12.0 GM/DL 11.9 GM/DL Hematocrit 39.3 % 38.8 % Mean Corpuscular Volume 82.8 FL 82.2 FL Mean Corpuscular Hemoglobin 25.3 PG 25.1 PG Mean Corpuscular Hemoglobin Concent 30.5 % 30.5 % Red Cell Distribution Width 14.5 % 14.6 % Platelet Count 353 TH/MM3 393 TH/MM3 Mean Platelet Volume 7.5 FL 7.7 FL Neutrophils (%) (Auto) 84.6 % 78.6 % Lymphocytes (%) (Auto) 8.5 % 12.1 % Monocytes (%) (Auto) 6.4 % 8.7 % Eosinophils (%) (Auto) 0.3 % 0.3 % Basophils (%) (Auto) 0.2 % 0.3 % Neutrophils # (Auto) 9.5 TH/MM3 11.2 TH/MM3 Lymphocytes # (Auto) 1.0 TH/MM3 1.7 TH/MM3 Monocytes # (Auto) 0.7 TH/MM3 1.2 TH/MM3 Eosinophils # (Auto) 0.0 TH/MM3 0.0 TH/MM3 Basophils # (Auto) 0.0 TH/MM3 0.0 TH/MM3 CBC Comment DIFF FINAL DIFF FINAL Differential Comment Blood Urea Nitrogen 16 MG/DL 14 MG/DL Creatinine 1.28 MG/DL 1.05 MG/DL Random Glucose 129 MG/DL 101 MG/DL Total Protein 7.5 GM/DL 7.5 GM/DL Albumin 3.2 GM/DL 3.3 GM/DL Calcium Level 8.2 MG/DL 8.4 MG/DL Magnesium Level 2.2 MG/DL Alkaline Phosphatase 72 U/L 73 U/L Aspartate Amino Transf (AST/SGOT) 21 U/L 18 U/L Alanine Aminotransferase (ALT/SGPT) 40 U/L 37 U/L Total Bilirubin 0.6 MG/DL 0.6 MG/DL Sodium Level 135 MEQ/L 136 MEQ/L Potassium Level 4.5 MEQ/L 4.4 MEQ/L Chloride Level 93 MEQ/L 95 MEQ/L Carbon Dioxide Level 37.4 MEQ/L 38.9 MEQ/L Anion Gap 5 MEQ/L 2 MEQ/L Estimat Glomerular Filtration Rate 71 ML/MIN 90 ML/MIN Total Creatine Kinase 124 U/L Troponin I 0.08 NG/ML Triglycerides Level 76 MG/DL Cholesterol Level 107 MG/DL LDL Cholesterol 55 MG/DL HDL Cholesterol 36.5 MG/DL Cholesterol/HDL Ratio 2.93 RATIO Digoxin Level 0.7 NG/ML Imaging Last Impressions CT Angiography 05/08/17 1541 Signed Impressions: Service Date/Time: Monday, May 08, 2017 16:22 - CONCLUSION: 1. No evidence of pulmonary embolism. 2. Mild right lower lung infiltrate with small right effusion. 3. Moderate diffuse cardiomegaly. David Phan MD Chest X-Ray 05/08/17 1343 Signed Impressions: Service Date/Time: Monday, May 08, 2017 13:53 - CONCLUSION: 1. Pulmonary venous congestion 2. Moderate stable cardiomegaly. David Phan MD (David Baum) Assessment and Plan Assessment and Plan 51-year-old male with past medical history of morbid obesity and COPD. The patient presented with chest pain, shortness of breath, fatigue. Found to be in new onset atrial flutter. Being treated with antibiotics for pneumonia. New onset atrial fibrillation/flutter with RVR: Weaned off Cardizem GGT. On Cardizem 90 mg 4 times a day and digitoxin. Heart rate remains rapid, start metoprolol. Chadsvasc 1 for HTN, aspirin 325 mg. New-onset systolic CHF: Echocardiogram with reduced systolic function, EF 30-35 %. Checking Lexiscan. Pneumonia: Chest CT with right lower lobe infiltrate and small right effusion. Continue antibiotics per primary team. Elevated troponin: Troponin 0.06, 0.08, minimally elevated, secondary to the above. Hypertension: BP elevated, adding metoprolol. (David Baum) Assessment and Plan afib titrate BB SPECT today (Konrad Morin MD) David Baum May 11, 2017 07:40 Konrad Morin MD May 11, 2017 12:25
[2017-05-11] MEDS ORDERED: IOHEXOL 350 MG/ML 50 ML BTL (for Cath Lab) OTHER ONE (08:30)
[2017-05-11] MEDS: DIGOXIN 0.25 MG TAB PO SCH (08:31)
[2017-05-11] MEDS: DILTIAZEM HCL 90 MG TAB PO SCH ×4 (08:32→21:42)
[2017-05-11] MEDS: ASPIRIN EC 325 MG TABEC PO SCH (08:32)
[2017-05-11] MEDS: SODIUM CHLORIDE 0.9% FLUSH 10 ML FLUSH IV FLUSH SCH ×2 (08:33→21:43)
[2017-05-11] MEDS: FUROSEMIDE 40 MG/4 ML VIAL IV PUSH SCH ×2 (08:33→17:10)
[2017-05-11] MEDS: HEPARIN SODIUM - SQ 10,000 UNITS/ML VIAL SQ SCH ×2 (08:34→21:43)
[2017-05-11] MEDS ORDERED: METOPROLOL TARTRATE 25 MG TAB PO SCH (09:00)
--- NOTE | 2017-05-11 10:59 | RADRPT ---
EXAM DATE/TIME: 05/11/2017 09:21 [place] COMPARISON: No previous studies available for comparison. INDICATIONS : Chest pain for 1 day. Angina. Atrial fibrillation. DOSE: 30.1 mCi Tc99m Myoview at stress. 29.9 mCi Tc99m Myoview at rest. 0.4 mg Lexiscan STRESS SYMPTOMS: None. EJECTION FRACTION: 48% MEDICAL HISTORY : Hypertension. Chronic obstructive pulmonary disease. SURGICAL HISTORY : None. ENCOUNTER: Initial ACUITY: 1 day PAIN SCALE: 4/10 LOCATION: Bilateral chest TECHNIQUE: The patient underwent pharmacologic stress with infusion of prescribed dose. Continuous ECG tracing was monitored during stress. Gated SPECT imaging was performed after stress and conventional SPECT i maging was performed at rest. The examination was performed on a SPECT/CT scanner, both attenuation and non-corrected datasets were reviewed. FINDINGS: DISTRIBUTION: The maximum perfused segment at stress is in the anteroseptal wall. PERFUSION STUDY: The pattern of perfusion at stress shows fixed diminished perfusion to the anterior thecal wall patrice cteristic of an old apical infarct. However, there is scintigraphic findings of significant ischemia along the inferior wall extending into the inferoseptal and inferolateral paz with greater than 30% redistribution. GATED STUDY: Septum is hypokinetic with a focal area of paradoxical motion near the apex. Hypokinesis in the anter ior and posterior paz with a reduced ejection fraction of 48%. CONCLUSION: 1. Scintigraphic findings concerning for severe ischemia in the inferior wall extending into the infe roseptal and inferolateral portions of the myocardium. 2. 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 3. Akinesis of the septum with paradoxical motion near the apex. Hypokinesis in the anterior and infe rior paz. Reduced ejection fraction of 48% RISK CATEGORY: High (>3% Annual Mortality Rate) Justice Padilla MD on May 11, 2017 at 10:51 Board Certified Radiologist. This report was verified electronically.
[2017-05-11] MEDS ORDERED: METOPROLOL TARTRATE 25 MG TAB PO ONE (13:30)
--- NOTE | 2017-05-11 14:22 | HHI.PR ---
Subjective Remarks Shortness of breath is still present. Stress test today shows evidence of ischemic pathology with high-grade risk. There is also evidence of an old apical infarct and an ejection fraction is estimated at 40%. Other than shortness of breath patient has no complaints of chest pain. Objective Vital Signs Date Time Temp Pulse Resp B/P (MAP) Pulse Ox O2 Delivery O2 Flow Rate FiO2 05/11/17 11:30 97.6 71 20 161/91 (114) 96 05/11/17 11:30 96 Nasal Cannula 4.00 05/11/17 07:20 97.9 103 21 189/115 (139) 98 05/11/17 07:17 95 Nasal Cannula 4.00 05/11/17 06:00 92 05/11/17 05:00 97 05/11/17 04:00 104 05/11/17 03:30 100.5 94 20 141/105 (117) 92 05/11/17 03:30 92 Nasal Cannula 4.00 05/11/17 03:00 98 05/11/17 02:00 73 05/11/17 01:00 72 05/11/17 00:00 97 05/10/17 23:00 99.1 112 18 137/85 (102) 95 05/10/17 23:00 95 Nasal Cannula 4.00 05/10/17 23:00 102 05/10/17 22:00 98 05/10/17 21:00 72 05/10/17 20:00 99.8 73 18 113/92 (99) 96 05/10/17 20:00 96 Nasal Cannula 4.00 05/10/17 20:00 96 05/10/17 19:02 Nasal Cannula 4.00 05/10/17 19:00 116 05/10/17 18:00 112 05/10/17 17:00 92 05/10/17 16:37 Nasal Cannula 4.00 05/10/17 16:00 72 05/10/17 15:17 98.2 80 20 113/74 (87) 95 05/10/17 15:00 96 I/O 05/10/17 05/10/17 05/10/17 05/11/17 05/11/17 05/11/17 07:00 15:00 23:00 07:00 15:00 23:00 Intake Total 1000 ml 1300 ml 480 ml Output Total 1050 ml 900 ml 600 ml Balance -50 ml 400 ml -120 ml Intake Oral 1000 ml 950 ml 480 ml IV Total 350 ml Output Urine Total 1050 ml 900 ml 600 ml # Voids 2 # Bowel Movements 0 1 0 Result Diagram: 05/11/1751805/11/17518 Objective Remarks GENERAL: NAD, A&Ox3 HEAD: Normocephalic. NECK: Supple, trachea midline. No lymphadenopathy. EYES: No scleral icterus. No injection or drainage. CARDIOVASCULAR: Regular rate and rhythm without murmurs, gallops, or rubs. RESPIRATORY: Breath sounds equal bilaterally. No accessory muscle use. GASTROINTESTINAL: Abdomen soft, non-tender, nondistended. MUSCULOSKELETAL: No cyanosis, or edema. SKIN: Warm and dry. NEURO: No focal neurological deficitis. A/P Problem List: (1) Atrial flutter ICD Code: I48.92 - Unspecified atrial flutter (2) Elevated troponin ICD Code: R74.8 - Abnormal levels of other serum enzymes Status: Acute (3) COPD exacerbation ICD Code: J44.1 - Chronic obstructive pulmonary disease with (acute) exacerbation Status: Acute Assessment and Plan Assessment and Plan 51-year-old male admitted secondary to A. fib RVR with pneumonia. Stress test is positive. Patient has reported BPH symptoms and Flomax was initiated. He will be screened for diabetes with hemoglobin A1c. Trial of CPAP tonight. A. fib RVR New onset Rate now controlled Status post stress testing today Cardiology following Continue Lasix Chest pain Mild troponin elevation Positive stress test Cardiology following Acute kidney injury Avoiding nephrotoxins Follow electrolytes Follow renal function Community-acquired pneumonia Hypoxia Continue IV Rocephin Continue IV Zithromax Follow cultures History of marijuana abuse History of cocaine abuse May be contributory Caution with beta blockers Severe obesity Weight reduction has been recommended COPD Continue oxygen Nebulized treatments as needed DVT prophylaxis SCDs Heparin continued Problem Qualifiers (1) Atrial flutter: Qualified Codes: I48.92 - Unspecified atrial flutter Dylon Batres MD May 11, 2017 14:22
[2017-05-11] MEDS ORDERED: TAMSULOSIN HCL 0.4 MG CAP PO ONE (14:30)
[2017-05-11] MEDS: cefTRIAXone INJ 1,000 MG in SODIUM CHLORIDE 0.9% INJ 100 ML IV SCH (17:14)
[2017-05-11] MEDS: AZITHROMYCIN INJ 500 MG in SODIUM CHLOR 0.9% 250 ML INJ 250 ML IV SCH (18:38)
[2017-05-11] MEDS ORDERED: METOPROLOL TARTRATE 50 MG TAB PO SCH (21:00)
[2017-05-12] VITALS (29 sets, daily range): BP systolic 136–181; BP diastolic 74–106; PULSE 42–120; RESP 20–24; TEMP 97.4–98.9; O2SAT 93–97
--- NOTE | 2017-05-12 07:51 | PD.CARD.PN ---
Subjective Subjective Remarks Continued shortness of breath, cough, chest discomfort. Telemetry showed some rapid A. fib earlier this morning. Doesn't want to discuss heart catheterization, wants his sister involved. (David Baum) Objective Medications Current Medications Medications (Trade) Dose Ordered Sig/Patricia Route Start Time Stop Time Status Last Admin (NS Flush) 2 ml UNSCH PRN IV FLUSH 05/08/17 15:45 (NS Flush) 2 ml BID IV FLUSH 05/08/17 21:00 05/11/17 21:43 (Ecotrin Ec) 325 mg DAILY PO 05/09/17 09:00 05/11/17 08:32 (Lasix Inj) 40 mg BID@,18 IV PUSH 05/09/17 09:00 05/11/17 17:10 (Nitrostat Sl) 0.4 mg Q5M PRN SL 05/08/17 16:15 (Albuterol Neb) 0.63 mg Q4HR NEB PRN NEB 05/08/17 16:15 (Heparin Inj) 5,000 units Q12HR SQ 05/08/17 21:00 05/11/17 21:43 (Tylenol) 650 mg Q4H PRN PO 05/08/17 16:15 (Zofran Inj) 4 mg Q6H PRN IVP 05/08/17 16:15 (Tylenol) 650 mg Q6H PRN PO 05/08/17 16:15 (Narcan Inj) 0.4 mg UNSCH PRN IV PUSH 05/08/17 16:15 (Senokot) 17.2 mg Q12H PRN PO 05/08/17 16:15 (Dulcolax Supp) 10 mg DAILY PRN RECTAL 05/08/17 16:15 (Lactulose Liq) 30 ml DAILY PRN PO 05/08/17 16:15 (Morphine Inj) 1 mg Q3H PRN IV PUSH 05/08/17 16:30 Ceftriaxone Sodium 1000 mg/ Sodium Chloride 100 ml @ 200 mls/hr Q24H IV 05/08/17 18:00 05/11/17 17:14 Azithromycin 500 mg/Sodium Chloride 250 ml @ 250 mls/hr Q24H IV 05/08/17 18:00 05/11/17 18:38 (Lanoxin) 0.25 mg DAILY PO 05/10/17 09:00 05/11/17 08:31 (Cardizem) 90 mg QID PO 05/10/17 09:00 05/11/17 21:42 (Flomax) 0.4 mg DAILY PO 05/12/17 09:00 (Lopressor) 75 mg Q12HR PO 05/12/17 09:00 UNV Vital Signs / I&O Vital Signs Date Time Temp Pulse Resp B/P (MAP) Pulse Ox O2 Delivery O2 Flow Rate FiO2 05/12/17 06:00 73 05/12/17 05:00 70 05/12/17 04:00 70 05/12/17 03:00 97 Nasal Cannula 4.00 05/12/17 03:00 98.4 71 22 145/96 (112) 97 05/12/17 03:00 70 05/12/17 02:00 69 05/12/17 01:52 96 40 05/12/17 01:00 70 05/12/17 00:00 42 05/11/17 23:00 69 05/11/17 23:00 98.5 70 20 124/95 (105) 97 05/11/17 23:00 97 Nasal Cannula 4.00 05/11/17 22:00 71 05/11/17 21:00 72 05/11/17 20:00 98.6 72 22 121/77 (92) 93 05/11/17 20:00 72 05/11/17 20:00 93 Nasal Cannula 4.00 05/11/17 19:00 72 05/11/17 18:01 76 05/11/17 17:00 60 05/11/17 16:00 72 05/11/17 15:30 97.8 71 20 151/84 (106) 94 05/11/17 15:30 Nasal Cannula 4.00 Humidified 05/11/17 15:00 96 05/11/17 14:00 78 05/11/17 13:00 72 05/11/17 12:00 70 05/11/17 11:30 97.6 71 20 161/91 (114) 96 05/11/17 11:30 96 Nasal Cannula 4.00 05/11/17 11:00 96 05/11/17 10:00 05/11/17 09:00 05/11/17 08:00 108 I/O 12/05/1605/11/17 05/11/17 05/12/17 05/12/17 05/12/17 07:00 15:00 23:00 07:00 15:00 23:00 Intake Total 480 ml 700 ml 480 ml Output Total 600 ml 400 ml 425 ml Balance -120 ml 300 ml 55 ml Intake Oral 480 ml 600 ml 480 ml IV Total 100 ml Output Urine Total 600 ml 400 ml 425 ml # Voids 4 # Bowel Movements 0 0 Physical Exam GENERAL: Well-developed well-nourished morbidly obese. NECK: No carotid bruits. No JVD. CARDIOVASCULAR: Irregular rate and irregular rhythm. No murmur appreciated. RESPIRATORY: No accessory muscle use. Clear to auscultation. Diminished breath sounds in the bases. MUSCULOSKELETAL: No clubbing or cyanosis. No edema. NEUROLOGICAL: Awake and alert. Normal speech. Imaging Last Impressions Myocardial Perfusion Scan Nuc Med 05/10/17 0000 Signed Impressions: Service Date/Time: Thursday, May 11, 2017 09:21 - CONCLUSION: 1. Scintigraphic findings concerning for severe ischemia in the inferior wall extending into the inferoseptal and inferolateral portions of the myocardium. 2. 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 3. Akinesis of the septum with paradoxical motion near the apex. Hypokinesis in the anterior and inferior paz. Reduced ejection fraction of 48%% RISK CATEGORY: High (>3%% Annual Mortality Rate ) Justice Padilla MD CT Angiography 05/08/17 1541 Signed Impressions: Service Date/Time: Monday, May 08, 2017 16:22 - CONCLUSION: 1. No evidence of pulmonary embolism. 2. Mild right lower lung infiltrate with small right effusion. 3. Moderate diffuse cardiomegaly. David Phan MD Chest X-Ray 05/08/17 1343 Signed Impressions: Service Date/Time: Monday, May 08, 2017 13:53 - CONCLUSION: 1. Pulmonary venous congestion 2. Moderate stable cardiomegaly. David Phan MD (David Baum) Assessment and Plan Assessment and Plan 51-year-old male with past medical history of morbid obesity and COPD. The patient presented with chest pain, shortness of breath, fatigue. Found to be in new onset atrial flutter. Being treated with antibiotics for pneumonia. New onset atrial fibrillation/flutter with RVR: Weaned off Cardizem GGT. On Cardizem 90 mg 4 times a day and digoxin. Started metoprolol, continue to titrate, increased dose. Chadsvasc 1 for HTN, aspirin 325 mg. New-onset systolic CHF: Echocardiogram with reduced systolic function, EF 30-35 %. Ischemic workup as below. Pneumonia: Chest CT with right lower lobe infiltrate and small right effusion. Continue antibiotics per primary team. NSTEMI: Troponin elevated. Lexiscan had findings concerning for ischemia in the inferior wall, inferior septum, inferior lateral. Nothing by mouth, will discuss with patient and family for possible cardiac catheterization. (David Baum) Assessment and Plan Patient agreeable to [facility] today cardiomyopathy with severe ischemic defect (Konrad Morin MD) David Baum May 12, 2017 07:51 Konrad Morin MD May 12, 2017 08:11
[2017-05-12] MEDS: DILTIAZEM HCL 90 MG TAB PO SCH ×4 (08:20→22:26)
[2017-05-12] MEDS: TAMSULOSIN HCL 0.4 MG CAP PO SCH (08:20)
[2017-05-12] MEDS: DIGOXIN 0.25 MG TAB PO SCH (08:20)
[2017-05-12] MEDS: ASPIRIN EC 325 MG TABEC PO SCH (08:20)
[2017-05-12] MEDS: FUROSEMIDE 40 MG/4 ML VIAL IV PUSH SCH (08:21)
[2017-05-12] MEDS ORDERED: HEPARIN SODIUM - IV 10,000 UNITS/10 ML VIAL ONE (08:22)
[2017-05-12] MEDS ORDERED: HEPARIN-NS/PF INJ 1,000 ML ONE (08:22)
[2017-05-12] MEDS: HEPARIN SODIUM - SQ 10,000 UNITS/ML VIAL SQ SCH (08:26)
[2017-05-12] MEDS: SODIUM CHLORIDE 0.9% FLUSH 10 ML FLUSH IV FLUSH SCH ×2 (08:26→22:26)
[2017-05-12] MEDS ORDERED: METOPROLOL TARTRATE 25 MG TAB PO SCH (09:00)
[2017-05-12] MEDS ORDERED: MIDAZOLAM HCL 2 MG/2 ML VIAL ONE (09:01)
[2017-05-12] MEDS ORDERED: DEFIB EXTERNAL (09:29)
[2017-05-12] MEDS ORDERED: BACITRACIN OINT 0.9 GM PKT TOP ONE (09:30)
[2017-05-12] MEDS ORDERED: MISC INFORMATION XX ONE (09:30)
--- NOTE | 2017-05-12 10:15 | MA ---
cc: FLO [place] DATE 05/12/2017 INDICATION Cardiomyopathy, abnormal stress test. PROCEDURE PERFORMED 1. Fluoroscopy with interpretation. 2. Coronary angiography. 3. Left heart catheterization. METHOD The risks, benefits and alternatives were discussed with the patient. The patient understood and consented to the procedure. The patient was brought into the catheterization lab, placed on the catheterization table. The right wrist was prepped and draped in a sterile fashion. The right wrist was anesthetized with 2% lidocaine. The right radial artery was cannulated. A 6 [place], 7 cm sheath was placed without difficulty. LEFT HEART CATHETERIZATION A 6 [place] JR5 catheter was advanced across the aortic valve without difficulty. Intraventricular hemodynamics measured at 140/20 mmHg. Left ventricular end-diastolic pressure was 22 mmHg. CORONARY ANGIOGRAPHY 1. The left main coronary is angiographically normal. 2. The left anterior descending coronary is a large caliber size vessel, gives rise to a diagonal branch and is angiographically normal. 3. The left circumflex is nondominant, gives rise to an obtuse marginal branch and is angiographically normal. 4. The right coronary is a dominant vessel, gives rise to a posterior descending branch and is angiographically normal. CONCLUSIONS 1. Angiographically normal coronary arteries. 2. Elevated left-sided filling pressures. PLAN Will continue to optimize medical management. Cardiomyopathy may be rate related. He has better heart rate control. Given the cardiomyopathy and persistent atrial fibrillation will initiate anticoagulation. Also due to arrhythmia risk and sudden cardiac with his nonischemic cardiomyopathy, will order for and automatic external cardioverter defibrillator. Continue with intravenous diuretic given elevated left-sided filling pressures. Hopefully anticipate discharge in the next 24-48 hours. MD ASHOK Orosco/MARSHALL /9:36 AM /9:45 AM
[2017-05-12] MEDS: LISINOPRIL 20 MG TAB PO SCH (11:24)
--- NOTE | 2017-05-12 11:32 | HHI.PR ---
Subjective Remarks Cardiac catheterization performed. No vascular disease identified. No intervention needed. Patient still has shortness of breath and has been oxygen dependent. He has severe cardiomyopathy at baseline and on the cardiac catheter he found he has an increased left-sided filling pressure. LifeVest has been recommended by cardiology. Further monitoring for 24-48 hours more also recommended. Objective Vital Signs Date Time Temp Pulse Resp B/P (MAP) Pulse Ox O2 Delivery O2 Flow Rate FiO2 05/12/17 11:24 97 Nasal Cannula 5.00 05/12/17 11:24 97.4 87 24 181/106 (131) 97 05/12/17 07:53 97 Nasal Cannula 4.00 05/12/17 07:53 97.7 80 24 161/97 (118) 93 05/12/17 06:00 73 05/12/17 05:00 70 05/12/17 04:00 70 05/12/17 03:00 97 Nasal Cannula 4.00 05/12/17 03:00 98.4 71 22 145/96 (112) 97 05/12/17 03:00 70 05/12/17 02:00 69 05/12/17 01:52 96 40 05/12/17 01:00 70 05/12/17 00:00 42 05/11/17 23:00 69 05/11/17 23:00 98.5 70 20 124/95 (105) 97 05/11/17 23:00 97 Nasal Cannula 4.00 05/11/17 22:00 71 05/11/17 21:00 72 05/11/17 20:00 98.6 72 22 121/77 (92) 93 05/11/17 20:00 72 05/11/17 20:00 93 Nasal Cannula 4.00 05/11/17 19:00 72 05/11/17 18:01 76 05/11/17 17:00 60 05/11/17 16:00 72 05/11/17 15:30 97.8 71 20 151/84 (106) 94 05/11/17 15:30 Nasal Cannula 4.00 Humidified 05/11/17 15:00 96 05/11/17 14:00 78 05/11/17 13:00 72 05/11/17 12:00 70 I/O 05/11/17 05/11/17 05/11/17 05/12/17 05/12/1713/17 07:00 15:00 23:00 07:00 15:00 23:00 Intake Total 480 ml 700 ml 480 ml Output Total 600 ml 400 ml 425 ml Balance -120 ml 300 ml 55 ml Intake Oral 480 ml 600 ml 480 ml IV Total 100 ml Output Urine Total 600 ml 400 ml 425 ml # Voids 4 # Bowel Movements 0 0 Result Diagram: 05/11/1751805/11/17518 Objective Remarks GENERAL: NAD, A&Ox3 HEAD: Normocephalic. NECK: Supple, trachea midline. No lymphadenopathy. EYES: No scleral icterus. No injection or drainage. CARDIOVASCULAR: Regular rate and rhythm without murmurs, gallops, or rubs. RESPIRATORY: Breath sounds equal bilaterally. No accessory muscle use. GASTROINTESTINAL: Abdomen soft, non-tender, nondistended. MUSCULOSKELETAL: No cyanosis, or edema. SKIN: Warm and dry. NEURO: No focal neurological deficitis. A/P Problem List: (1) Atrial flutter ICD Code: I48.92 - Unspecified atrial flutter (2) Elevated troponin ICD Code: R74.8 - Abnormal levels of other serum enzymes Status: Acute (3) COPD exacerbation ICD Code: J44.1 - Chronic obstructive pulmonary disease with (acute) exacerbation Status: Acute Assessment and Plan Assessment and Plan 51-year-old male admitted secondary to A. fib RVR with pneumonia. Cardiac catheter shows left-sided filling pressure has increased pressures. No vascular disease. LifeVest ordered. Potential discharge in 24-48 hours pending patient's clinical status and cardiac clearance. Patient remains oxygen dependent. He'll need an oxygen walk tests the day of discharge. A. fib RVR New onset Rate now controlled Status post stress testing today Cardiology following Continue Lasix Chest pain Mild troponin elevation Positive stress test Cardiology following Acute kidney injury Avoiding nephrotoxins Follow electrolytes Follow renal function Community-acquired pneumonia Hypoxia Continue IV Rocephin Continue IV Zithromax Follow cultures History of marijuana abuse History of cocaine abuse May be contributory Caution with beta blockers Severe obesity Weight reduction has been recommended COPD Continue oxygen Nebulized treatments as needed DVT prophylaxis SCDs Heparin continued Problem Qualifiers (1) Atrial flutter: Qualified Codes: I48.92 - Unspecified atrial flutter Dylon Batres MD May 12, 2017 11:32
[2017-05-12 13:11] LABS: BASOPHIL % 0.4 % (0.0-2.0); EOSINOPHIL # 0.1 TH/MM3 (0-0.4); EOSINOPHIL % 0.6 % (0.0-4.0); HEMATOCRIT 39.2 % (39.0-51.0); HEMO FLAGS DIFF FINAL; LYMPH % 14.9 % (9.0-44.0); LYMPHOCYTE # 1.4 TH/MM3 (1.0-4.8); MEAN CELL VOLUME 82.3 FL (80.0-100.0); MEAN CORPUSCULAR HEMOGLOBIN 25.2 PG (27.0-34.0); MEAN CORPUSCULAR HGB CONC 30.7 % (32.0-36.0); MONO % 10.8 % (0.0-8.0); NEUT % 73.3 % (16.0-70.0); PLATELET COUNT 318 TH/MM3 (150-450); RED BLOOD COUNT 4.76 MIL/MM3 (4.50-5.90); RED CELL DISTRIBUTION WIDTH 14.6 % (11.6-17.2); WHITE BLOOD COUNT 9.5 TH/MM3 (4.0-11.0)
[2017-05-12 14:02] LABS: ANION GAP 0 MEQ/L (5-15); AST (GOT) 16 U/L (15-37); BICARBONATE 43.9 MEQ/L (21.0-32.0); BLOOD UREA NITROGEN 15 MG/DL (7-18); CHLORIDE 93 MEQ/L (98-107); GLOMERULAR FILTRATION RATE 102 ML/MIN (>89); SODIUM (NA) 137 MEQ/L (136-145)
[2017-05-12 14:05] LABS: ALKALINE PHOSPHATASE 66 U/L (45-117); ALT (GPT) 35 U/L (12-78); TOTAL BILIRUBIN ADULT 0.5 MG/DL (0.2-1.0)
[2017-05-12 16:47] LABS: HEMOGLOBIN A1a 1.3 %; HEMOGLOBIN A1b 1.3 %; HEMOGLOBIN Ao 86.6 %; HEMOGLOBIN LA1C 1.8 %; HEMOGLOBIN P3 3.3 %
[2017-05-12] MEDS: cefTRIAXone INJ 1,000 MG in SODIUM CHLORIDE 0.9% INJ 100 ML IV SCH (18:28)
[2017-05-12] MEDS: FUROSEMIDE 100 MG/10 ML VIAL IV PUSH SCH (18:29)
[2017-05-12] MEDS: AZITHROMYCIN INJ 500 MG in SODIUM CHLOR 0.9% 250 ML INJ 250 ML IV SCH (19:08)
[2017-05-12] MEDS: METOPROLOL TARTRATE 50 MG TAB PO SCH (22:25)
[2017-05-13] VITALS (25 sets, daily range): BP systolic 120–166; BP diastolic 65–90; PULSE 62–126; RESP 20–22; TEMP 98.1–98.7; O2SAT 93–96
--- NOTE | 2017-05-13 07:53 | PD.CARD.PN ---
Subjective Subjective Remarks Shortness of breath slightly improved. Chest discomfort improving. Still with productive cough. -5800 fluid balance overnight. Telemetry currently with rate controlled atrial flutter. (David Baum) Objective Medications Current Medications Medications (Trade) Dose Ordered Sig/Patricia Route Start Time Stop Time Status Last Admin (NS Flush) 2 ml UNSCH PRN IV FLUSH 05/08/17 15:45 (NS Flush) 2 ml BID IV FLUSH 05/08/17 21:00 05/12/17 22:26 (Nitrostat Sl) 0.4 mg Q5M PRN SL 05/08/17 16:15 (Albuterol Neb) 0.63 mg Q4HR NEB PRN NEB 05/08/17 16:15 (Tylenol) 650 mg Q4H PRN PO 05/08/17 16:15 (Zofran Inj) 4 mg Q6H PRN IVP 05/08/17 16:15 (Tylenol) 650 mg Q6H PRN PO 05/08/17 16:15 (Narcan Inj) 0.4 mg UNSCH PRN IV PUSH 05/08/17 16:15 (Senokot) 17.2 mg Q12H PRN PO 05/08/17 16:15 (Dulcolax Supp) 10 mg DAILY PRN RECTAL 05/08/17 16:15 (Lactulose Liq) 30 ml DAILY PRN PO 05/08/17 16:15 (Morphine Inj) 1 mg Q3H PRN IV PUSH 05/08/17 16:30 Ceftriaxone Sodium 1000 mg/ Sodium Chloride 100 ml @ 200 mls/hr Q24H IV 05/08/17 18:00 05/12/17 18:28 Azithromycin 500 mg/Sodium Chloride 250 ml @ 250 mls/hr Q24H IV 05/08/17 18:00 05/12/17 19:08 (Lanoxin) 0.25 mg DAILY PO 05/10/17 09:00 05/12/17 08:20 (Cardizem) 90 mg QID PO 05/10/17 09:00 05/12/17 22:26 (Flomax) 0.4 mg DAILY PO 05/12/17 09:00 05/12/17 08:20 (Lasix Inj) 80 mg BID@0900,1800 IV PUSH 05/12/17 18:00 05/12/17 18:29 (Lopressor) 50 mg Q12HR PO 05/12/17 21:00 05/12/17 22:25 (Prinivil) 20 mg DAILY PO 05/12/17 11:00 05/12/17 11:24 (Savaysa) 60 mg DAILY PO 05/13/17 09:00 Vital Signs / I&O Vital Signs Date Time Temp Pulse Resp B/P (MAP) Pulse Ox O2 Delivery O2 Flow Rate FiO2 05/13/17 07:00 72 05/13/17 06:00 72 05/13/17 05:42 93 Nasal Cannula 5.00 05/13/17 05:00 72 05/13/17 04:00 72 05/13/17 04:00 Nasal Cannula 4.00 05/13/17 04:00 98.4 71 20 160/65 (96) 93 05/13/17 03:00 70 05/13/17 02:00 64 05/13/17 01:00 70 05/13/17 00:00 Nasal Cannula 4.00 05/13/17 00:00 62 05/13/17 00:00 98.2 71 20 120/81 (94) 95 05/13/17 00:00 71 05/12/17 23:00 72 05/12/17 22:00 72 05/12/17 21:00 74 05/12/17 20:00 93 05/12/17 20:00 98.9 73 20 145/74 (97) 95 05/12/17 20:00 Nasal Cannula 4.00 05/12/17 19:00 108 05/12/17 18:43 98 05/12/17 17:29 92 05/12/17 16:00 72 05/12/17 15:11 96 Nasal Cannula 5.00 05/12/17 15:11 98.5 73 20 136/87 (103) 96 05/12/17 15:00 100 05/12/17 14:00 70 05/12/17 13:34 93 05/12/17 13:23 76 05/12/17 12:00 86 05/12/17 11:24 97 Nasal Cannula 5.00 05/12/17 11:24 97.4 87 24 181/106 (131) 97 05/12/17 11:00 70 05/12/17 10:00 120 05/12/17 08:00 84 05/12/17 07:53 97 Nasal Cannula 4.00 05/12/17 07:53 97.7 80 24 161/97 (118) 93 I/O 05/12/17 05/12/17 05/12/17 05/13/17 05/13/17 05/13/17 07:00 15:00 23:00 07:00 15:00 23:00 Intake Total 480 ml 700 ml 600 ml Output Total 425 ml 3675 ml 3475 ml Balance 55 ml -2975 ml -2875 ml Intake Oral 480 ml 600 ml 600 ml IV Total 100 ml Output Urine Total 425 ml 3675 ml 3475 ml # Bowel Movements 0 0 1 Physical Exam GENERAL: Well-developed well-nourished morbidly obese. NECK: No carotid bruits. No JVD. CARDIOVASCULAR: Irregular rate and irregular rhythm. No murmur appreciated. RESPIRATORY: No accessory muscle use. Clear to auscultation. Diminished breath sounds in the bases. MUSCULOSKELETAL: No clubbing or cyanosis. Trace edema. NEUROLOGICAL: Awake and alert. Normal speech. Laboratory Laboratory Tests Test 05/12/17 12:34 White Blood Count 9.5 TH/MM3 Red Blood Count 4.76 MIL/MM3 Hemoglobin 12.0 GM/DL Hematocrit 39.2 % Mean Corpuscular Volume 82.3 FL Mean Corpuscular Hemoglobin 25.2 PG Mean Corpuscular Hemoglobin Concent 30.7 % Red Cell Distribution Width 14.6 % Platelet Count 318 TH/MM3 Mean Platelet Volume 7.3 FL Neutrophils (%) (Auto) 73.3 % Lymphocytes (%) (Auto) 14.9 % Monocytes (%) (Auto) 10.8 % Eosinophils (%) (Auto) 0.6 % Basophils (%) (Auto) 0.4 % Neutrophils # (Auto) 7.0 TH/MM3 Lymphocytes # (Auto) 1.4 TH/MM3 Monocytes # (Auto) 1.0 TH/MM3 Eosinophils # (Auto) 0.1 TH/MM3 Basophils # (Auto) 0.0 TH/MM3 CBC Comment DIFF FINAL Differential Comment Blood Urea Nitrogen 15 MG/DL Creatinine 0.94 MG/DL Random Glucose 114 MG/DL Total Protein 7.0 GM/DL Albumin 3.1 GM/DL Calcium Level 8.3 MG/DL Alkaline Phosphatase 66 U/L Aspartate Amino Transf (AST/SGOT) 16 U/L Alanine Aminotransferase (ALT/SGPT) 35 U/L Total Bilirubin 0.5 MG/DL Sodium Level 137 MEQ/L Potassium Level 4.0 MEQ/L Chloride Level 93 MEQ/L Carbon Dioxide Level 43.9 MEQ/L Anion Gap 0 MEQ/L Estimat Glomerular Filtration Rate 102 ML/MIN Hemoglobin A1c 5.4 % Imaging Last Impressions Myocardial Perfusion Scan Nuc Med 05/10/17 0000 Signed Impressions: Service Date/Time: Thursday, May 11, 2017 09:21 - CONCLUSION: 1. Scintigraphic findings concerning for severe ischemia in the inferior wall extending into the inferoseptal and inferolateral portions of the myocardium. 2. 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 3. Akinesis of the septum with paradoxical motion near the apex. Hypokinesis in the anterior and inferior paz. Reduced ejection fraction of 48%% RISK CATEGORY: High (>3%% Annual Mortality Rate ) Justice Padilla MD CT Angiography 05/08/17 1541 Signed Impressions: Service Date/Time: Monday, May 08, 2017 16:22 - CONCLUSION: 1. No evidence of pulmonary embolism. 2. Mild right lower lung infiltrate with small right effusion. 3. Moderate diffuse cardiomegaly. David Phan MD Chest X-Ray 05/08/17 1343 Signed Impressions: Service Date/Time: Monday, May 08, 2017 13:53 - CONCLUSION: 1. Pulmonary venous congestion 2. Moderate stable cardiomegaly. David Phan MD (David Baum) Assessment and Plan Assessment and Plan 51-year-old male with past medical history of morbid obesity and COPD. The patient presented with chest pain, shortness of breath, fatigue. Found to be in new onset atrial flutter. Being treated with antibiotics for pneumonia. New onset atrial fibrillation/flutter with RVR: Continue Cardizem, metoprolol, digoxin. Savaysa. New-onset systolic CHF: Echocardiogram with reduced systolic function, EF 30-35 %. IV diuresis. Nonischemic cardiomyopathy: Catheterization with angiographically normal coronary arteries. Added lisinopril. LifeVest. Pneumonia: Chest CT with right lower lobe infiltrate and small right effusion. Continue antibiotics per primary team. (David Baum) Assessment and Plan rate controlled NICM LifeVest anticoagulation DC on current regimen change lasix to 40 mg PO BID on DC FU with dr. howard, cardiology outpatient (Konrad Morin MD) David Baum May 13, 2017 07:53 Konrad Morin MD May 13, 2017 08:17
[2017-05-13] MEDS: EDOXABAN TOSYLATE 60 MG TAB PO SCH (10:00)
[2017-05-13] MEDS: DIGOXIN 0.25 MG TAB PO SCH (10:00)
[2017-05-13] MEDS: METOPROLOL TARTRATE 50 MG TAB PO SCH ×2 (10:00→21:14)
[2017-05-13] MEDS: TAMSULOSIN HCL 0.4 MG CAP PO SCH (10:00)
[2017-05-13] MEDS: DILTIAZEM HCL 90 MG TAB PO SCH ×4 (10:00→21:14)
[2017-05-13] MEDS: LISINOPRIL 20 MG TAB PO SCH (10:01)
[2017-05-13] MEDS: FUROSEMIDE 100 MG/10 ML VIAL IV PUSH SCH ×2 (10:07→17:56)
[2017-05-13] MEDS: SODIUM CHLORIDE 0.9% FLUSH 10 ML FLUSH IV FLUSH SCH ×2 (10:07→21:15)
--- NOTE | 2017-05-13 12:44 | HHI.PR ---
Subjective Remarks Patient denies shortness of breath but states that the edema in his legs thighs and abdomen has not improved since admission. He has had excellent diuresis with negative fluid balance of 5000 mL overnight. Objective Vitals Vital Signs Date Time Temp Pulse Resp B/P (MAP) Pulse Ox O2 Delivery O2 Flow Rate FiO2 05/13/17 12:08 67 05/13/17 11:06 96 Nasal Cannula 5.00 05/13/17 11:06 98.6 70 21 129/90 (103) 93 05/13/17 11:01 70 05/13/17 10:00 84 05/13/17 09:00 102 05/13/17 08:00 72 05/13/17 07:51 98.1 73 21 136/85 (102) 96 05/13/17 07:51 96 Nasal Cannula 5.00 05/13/17 07:00 72 05/13/17 06:00 72 05/13/17 05:42 93 Nasal Cannula 5.00 05/13/17 05:00 72 05/13/17 04:00 72 05/13/17 04:00 Nasal Cannula 4.00 05/13/17 04:00 98.4 71 20 160/65 (96) 93 05/13/17 03:00 70 05/13/17 02:00 64 05/13/17 01:00 70 05/13/17 00:00 Nasal Cannula 4.00 05/13/17 00:00 62 05/13/17 00:00 98.2 71 20 120/81 (94) 95 05/13/17 00:00 71 05/12/17 23:00 72 05/12/17 22:00 72 05/12/17 21:00 74 05/12/17 20:00 93 05/12/17 20:00 98.9 73 20 145/74 (97) 95 05/12/17 20:00 Nasal Cannula 4.00 05/12/17 19:00 108 05/12/17 18:43 98 05/12/17 17:29 92 05/12/17 16:00 72 05/12/17 15:11 96 Nasal Cannula 5.00 05/12/17 15:11 98.5 73 20 136/87 (103) 96 05/12/17 15:00 100 05/12/17 14:00 70 05/12/17 13:34 93 05/12/17 13:23 76 I/O 05/12/17 05/12/17 05/12/17 05/13/17 05/13/17 05/13/17 06:59 14:59 22:59 06:59 14:59 22:59 Intake Total 480 ml 700 ml 600 ml Output Total 425 ml 3675 ml 3475 ml Balance 55 ml -2975 ml -2875 ml Intake Oral 480 ml 600 ml 600 ml IV Total 100 ml Output Urine Total 425 ml 3675 ml 3475 ml # Bowel Movements 0 0 1 Result Diagram: 05/12/17 1234 05/12/17 1234 Objective Remarks GENERAL: Well-nourished, well-developed pleasant middle-aged Afro-[place] male patient with morbid obesity. SKIN: Warm and dry. HEAD: Normocephalic. EYES: No scleral icterus. No injection or drainage. NECK: Supple, trachea midline. No JVD or lymphadenopathy. CARDIOVASCULAR: Regular rate and rhythm without murmurs, gallops, or rubs. RESPIRATORY: Breath sounds equal bilaterally. No accessory muscle use. GASTROINTESTINAL: Abdomen soft, non-tender, nondistended. EXTREMITIES: 2+ edema right lower extremity, 1+ edema left lower extremity up to thighs. NEUROLOGICAL: Awake, alert, and oriented x 3. Non-focal. Procedures Left heart catheterization A/P Problem List: (1) Atrial flutter ICD Code: I48.92 - Unspecified atrial flutter Status: Acute (2) Cocaine abuse ICD Code: F14.10 - Cocaine abuse, uncomplicated (3) CRIS (obstructive sleep apnea) ICD Code: G47.33 - Obstructive sleep apnea (adult) (pediatric) Status: Chronic (4) Obesity hypoventilation syndrome ICD Code: E66.2 - Morbid (severe) obesity with alveolar hypoventilation Status: Chronic (5) Nonischemic cardiomyopathy ICD Code: I42.8 - Other cardiomyopathies Status: Chronic (6) COPD exacerbation ICD Code: J44.1 - Chronic obstructive pulmonary disease with (acute) exacerbation Status: Acute (7) Elevated troponin ICD Code: R74.8 - Abnormal levels of other serum enzymes Status: Acute (8) Accelerated hypertension ICD Code: I10 - Essential (primary) hypertension Status: Acute (9) CHF (congestive heart failure) ICD Code: I50.9 - Heart failure, unspecified Assessment and Plan 51-year-old male admitted secondary to AStephanie dupree RVR with possible pneumonia, chest pain. New onset atrial fibrillation/atrial flutter with rapid ventricular rate Rate now controlled. Continue metoprolol, digoxin and Cardizem. I will change short acting Cardizem to long-acting. Check digoxin level in morning. -Edoxaban for anticoagulation -TSH within normal limits. Echocardiogram with EF of 30-35%. Nonischemic cardiomyopathy - LVEF 30-35% Had positive troponin and positive stress test however left heart catheter showed clean arteries. Continue metoprolol, lisinopril Has LifeVest Will follow-up as outpatient with Dr. Mckeon New onset CHF with acute systolic exacerbation - still has significant pedal edema but is diuresing very well with stable creatinine Continue IV Lasix for now and repeat BMP in a.m. Changed to by mouth Lasix when edema improved (high risk for readmission at this time) Mild acute kidney injury creatinine 1.3 on admission, now normal. Follow BMP. Right lower lung infiltrate/community-acquired pneumonia, with hypoxia/acute respiratory failure - also has respiratory failure due to obesity hypoventilation, obstructive sleep apnea, COPD -Patient desaturates to the 80s immediately upon removal of oxygen -Continue diuresis, IV Rocephin and Zithromax -Walk test as he will likely need home oxygen -Legionella and strep pneumonia antigen negative HTN - improving, continue metoprolol, cardizem and lisinopril. Marijuana and cocaine abuse - patient has been counseled on cessation and that cocaine use may worsen his cardiomyopathy. Morbid obesity- Weight reduction has been recommended. A1c 5.4. COPD- Continue oxygen Nebulized treatments as needed DVT prophylaxis SCDs Heparin continued Problem Qualifiers (1) Atrial flutter: Qualified Codes: I48.92 - Unspecified atrial flutter (2) CHF (congestive heart failure): Qualified Codes: I50.21 - Acute systolic (congestive) heart failure Claudette Benson MD May 13, 2017 12:44
[2017-05-13] MEDS: cefTRIAXone INJ 1,000 MG in SODIUM CHLORIDE 0.9% INJ 100 ML IV SCH (18:02)
[2017-05-13 18:10] LABS: AUTOMATED NEUTROPHIL # 9.4 TH/MM3 (1.8-7.7); BASOPHIL # 0.1 TH/MM3 (0-0.2); BASOPHIL % 0.7 % (0.0-2.0); EOSINOPHIL # 0.2 TH/MM3 (0-0.4); EOSINOPHIL % 1.2 % (0.0-4.0); HEMATOCRIT 39.8 % (39.0-51.0); HEMO FLAGS DIFF FINAL; LYMPH % 16.5 % (9.0-44.0); LYMPHOCYTE # 2.1 TH/MM3 (1.0-4.8); MEAN CELL VOLUME 81.2 FL (80.0-100.0); MEAN CORPUSCULAR HEMOGLOBIN 24.8 PG (27.0-34.0); MEAN CORPUSCULAR HGB CONC 30.6 % (32.0-36.0); MONO % 7.9 % (0.0-8.0); NEUT % 73.7 % (16.0-70.0); PLATELET COUNT 330 TH/MM3 (150-450); RED CELL DISTRIBUTION WIDTH 14.8 % (11.6-17.2); WHITE BLOOD COUNT 12.8 TH/MM3 (4.0-11.0)
[2017-05-13 18:34] LABS: ALT (GPT) 38 U/L (12-78); ANION GAP 1 MEQ/L (5-15); AST (GOT) 17 U/L (15-37); BICARBONATE 43.8 MEQ/L (21.0-32.0); BLOOD UREA NITROGEN 17 MG/DL (7-18); CHLORIDE 92 MEQ/L (98-107); GLOMERULAR FILTRATION RATE 74 ML/MIN (>89); POTASSIUM 3.8 MEQ/L (3.5-5.1); SODIUM (NA) 137 MEQ/L (136-145)
[2017-05-13] MEDS: AZITHROMYCIN INJ 500 MG in SODIUM CHLOR 0.9% 250 ML INJ 250 ML IV SCH (18:34)
[2017-05-13 18:36] LABS: ALKALINE PHOSPHATASE 70 U/L (45-117); TOTAL BILIRUBIN ADULT 0.4 MG/DL (0.2-1.0)
[2017-05-14] VITALS (18 sets, daily range): BP systolic 131–191; BP diastolic 65–92; PULSE 71–118; RESP 16–22; TEMP 97.1–98.9; O2SAT 91–96
[2017-05-14] MEDS: DILTIAZEM-CD 300 MG CAP ER PO SCH (09:00)
[2017-05-14] MEDS: TAMSULOSIN HCL 0.4 MG CAP PO SCH (09:00)
[2017-05-14] MEDS: FUROSEMIDE 100 MG/10 ML VIAL IV PUSH SCH ×2 (09:00→18:00)
[2017-05-14] MEDS: SODIUM CHLORIDE 0.9% FLUSH 10 ML FLUSH IV FLUSH SCH ×2 (09:00→20:39)
[2017-05-14 10:17] LABS: BLOOD UREA NITROGEN 13 MG/DL (7-18); CHLORIDE 92 MEQ/L (98-107); GLOMERULAR FILTRATION RATE 96 ML/MIN (>89); POTASSIUM 4.1 MEQ/L (3.5-5.1); SODIUM (NA) 138 MEQ/L (136-145)
[2017-05-14] MEDS: LISINOPRIL 20 MG TAB PO SCH (10:29)
[2017-05-14 10:30] LABS: DIGOXIN 0.6 NG/ML (0.8-2.0)
[2017-05-14] MEDS: METOPROLOL TARTRATE 50 MG TAB PO SCH ×2 (10:30→20:39)
[2017-05-14] MEDS: EDOXABAN TOSYLATE 60 MG TAB PO SCH (10:30)
[2017-05-14] MEDS: DIGOXIN 0.25 MG TAB PO SCH (10:30)
[2017-05-14 10:33] LABS: ANION GAP 1 MEQ/L (5-15); BICARBONATE GREATER THAN 45.0 MEQ/L (21.0-32.0)
[2017-05-14] MEDS ORDERED: OXYGEN NAS.CANULA (10:41)
[2017-05-14] MEDS ORDERED: FURO1TAB60 PO (10:46)
[2017-05-14] MEDS ORDERED: DIGO0.25 PO (10:46)
[2017-05-14] MEDS ORDERED: TAMS5CAP PO (10:46)
[2017-05-14] MEDS ORDERED: SPIR50TA PO (10:46)
[2017-05-14] MEDS ORDERED: METO-309 PO (10:46)
[2017-05-14] MEDS ORDERED: LISI-515 PO (10:46)
[2017-05-14] MEDS ORDERED: EDOX1TAB5 PO (10:46)
[2017-05-14] MEDS ORDERED: HYDR25TA5 PO (10:46)
[2017-05-14] MEDS ORDERED: DILT300C3 PO (10:48)
--- NOTE | 2017-05-14 12:25 | HHI.PR ---
Subjective Remarks Mr. Casanova has diuresed 3 L out overnight. He complains of significant shortness of breath with exertion. He does not see any improvement in his pedal edema. Objective Vitals Vital Signs Date Time Temp Pulse Resp B/P (MAP) Pulse Ox O2 Delivery O2 Flow Rate FiO2 05/14/17 11:00 97.9 74 18 163/74 (103) 96 05/14/17 11:00 76 05/14/17 11:00 Nasal Cannula 5.00 40 Humidified 05/14/17 10:00 118 05/14/17 09:00 93 05/14/17 08:00 96 05/14/17 07:00 Nasal Cannula 5.00 40 Humidified 05/14/17 07:00 97.1 76 16 191/73 (112) 91 05/14/17 07:00 96 05/14/17 04:00 98.0 71 22 172/92 (118) 92 05/14/17 04:00 86 05/14/17 04:00 Nasal Cannula 5.00 Humidified 05/14/17 00:00 Nasal Cannula 5.00 Humidified 05/14/17 00:00 98.2 71 20 150/88 (108) 92 05/14/17 00:00 71 05/13/17 20:00 106 05/13/17 20:00 Nasal Cannula 5.00 Humidified 05/13/17 20:00 5.00 05/13/17 20:00 98.7 86 22 166/83 (110) 93 05/13/17 18:16 82 05/13/17 17:55 5.00 05/13/17 17:00 80 05/13/17 16:00 74 05/13/17 15:53 98.3 75 21 152/78 (102) 93 05/13/17 15:53 93 Nasal Cannula 5.00 05/13/17 15:00 73 05/13/17 14:00 74 05/13/17 13:49 93 Nasal Cannula 5.00 05/13/17 13:20 126 I/O 05/13/17 05/13/17 05/13/17 05/14/17 05/14/17 05/14/17 07:00 15:00 23:00 07:00 15:00 23:00 Intake Total 600 ml 1230 ml 240 ml Output Total 3475 ml 2395 ml 2100 ml Balance -2875 ml -1165 ml -1860 ml Intake Oral 600 ml 980 ml 240 ml IV Total 250 ml Output Urine Total 3475 ml 2395 ml 2100 ml # Bowel Movements 1 0 Result Diagram: 05/13/17 1758 05/14/17 0910 Objective Remarks GENERAL: Well-nourished, well-developed pleasant middle-aged Afro[place]Citizen [place] Citizen [place] male patient with morbid obesity. SKIN: Warm and dry. HEAD: Normocephalic. EYES: No scleral icterus. No injection or drainage. NECK: Supple, trachea midline. No JVD or lymphadenopathy. CARDIOVASCULAR: Regular rate and rhythm without murmurs, gallops, or rubs. RESPIRATORY: Breath sounds equal bilaterally. No accessory muscle use. GASTROINTESTINAL: Abdomen soft, non-tender, nondistended. EXTREMITIES: 2+ edema right lower extremity, 1+ edema left lower extremity up to thighs. NEUROLOGICAL: Awake, alert, and oriented x 3. Non-focal. Procedures Left heart catheterization A/P Problem List: (1) Atrial flutter ICD Code: I48.92 - Unspecified atrial flutter Status: Acute (2) Cocaine abuse ICD Code: F14.10 - Cocaine abuse, uncomplicated (3) CRIS (obstructive sleep apnea) ICD Code: G47.33 - Obstructive sleep apnea (adult) (pediatric) Status: Chronic (4) Obesity hypoventilation syndrome ICD Code: E66.2 - Morbid (severe) obesity with alveolar hypoventilation Status: Chronic (5) Nonischemic cardiomyopathy ICD Code: I42.8 - Other cardiomyopathies Status: Chronic (6) COPD exacerbation ICD Code: J44.1 - Chronic obstructive pulmonary disease with (acute) exacerbation Status: Acute (7) Elevated troponin ICD Code: R74.8 - Abnormal levels of other serum enzymes Status: Acute (8) Accelerated hypertension ICD Code: I10 - Essential (primary) hypertension Status: Acute (9) CHF (congestive heart failure) ICD Code: I50.9 - Heart failure, unspecified (10) Acute and chronic respiratory failure ICD Code: J96.20 - Acute and chronic respiratory failure, unspecified whether with hypoxia or hypercapnia Status: Acute Assessment and Plan 51-year-old male admitted secondary to A. joon RVR with possible pneumonia, chest pain. New onset atrial fibrillation/atrial flutter with rapid ventricular rate Rate now controlled. Continue metoprolol, digoxin and Cardizem. I will change short acting Cardizem to long-acting. Check digoxin level in morning. -Edoxaban for anticoagulation -TSH within normal limits. Echocardiogram with EF of 30-35%. Nonischemic cardiomyopathy - LVEF 30-35% Had positive troponin and positive stress test however left heart catheter showed clean arteries. Continue metoprolol, lisinopril Has LifeVest Will follow-up as outpatient with Dr. Mckeon New onset CHF with acute systolic exacerbation - still has significant pedal edema but is diuresing very well with stable creatinine Continue IV Lasix for now and repeat BMP in a.m. Changed to by mouth Lasix as outpatient when edema improved (high risk for readmission at this time) Acute and chronic resp failure due to above CTA was neg for PE Mild acute kidney injury creatinine 1.3 on admission, now normal. Follow BMP. Right lower lung infiltrate/community-acquired pneumonia, with hypoxia/acute respiratory failure - also has respiratory failure due to obesity hypoventilation, obstructive sleep apnea, COPD -Patient desaturates to the 80s immediately upon removal of oxygen -Continue diuresis, IV Rocephin and Zithromax (one more day) -Walk test as he will likely need home oxygen -Legionella and strep pneumonia antigen negative HTN -still not controlled. continue metoprolol, cardizem and lisinopril. add back HCTZ. start spironolactone which will help with the cardiomyopathy as well. Marijuana and cocaine abuse - patient has been counseled on cessation and that cocaine use may worsen his cardiomyopathy. Morbid obesity- Weight reduction has been recommended. A1c 5.4. COPD- Continue oxygen Nebulized treatments as needed DVT prophylaxis SCDs Lovenox 40 mg sq daily Problem Qualifiers (1) Atrial flutter: Qualified Codes: I48.92 - Unspecified atrial flutter (2) CHF (congestive heart failure): Qualified Codes: I50.21 - Acute systolic (congestive) heart failure (3) Acute and chronic respiratory failure: Qualified Codes: J96.21 - Acute and chronic respiratory failure with hypoxia; J96.22 - Acute and chronic respiratory failure with hypercapnia Claudette Benson MD May 14, 2017 12:25
[2017-05-14] MEDS: HYDROCHLOROTHIAZIDE 25 MG TAB PO SCH (14:43)
[2017-05-14] MEDS: SPIRONOLACTONE 50 MG TAB PO SCH (14:43)
[2017-05-14] MEDS ORDERED: MORPHINE SULFATE 2 MG/ML INJ IV PUSH PRN (16:30)
[2017-05-14] MEDS: cefTRIAXone INJ 1,000 MG in SODIUM CHLORIDE 0.9% INJ 100 ML IV SCH (18:00)
[2017-05-14] MEDS: AZITHROMYCIN INJ 500 MG in SODIUM CHLOR 0.9% 250 ML INJ 250 ML IV SCH (18:00)
[2017-05-15] VITALS (25 sets, daily range): BP systolic 115–161; BP diastolic 63–98; PULSE 58–104; RESP 16–22; TEMP 97.4–98.4; O2SAT 93–99
[2017-05-15 07:50] LABS: BICARBONATE 42.3 MEQ/L (21.0-32.0)
[2017-05-15] MEDS: SODIUM CHLORIDE 0.9% FLUSH 10 ML FLUSH IV FLUSH SCH ×2 (09:00→20:56)
[2017-05-15] MEDS: FUROSEMIDE 100 MG/10 ML VIAL IV PUSH SCH ×2 (09:00→17:58)
[2017-05-15] MEDS: TAMSULOSIN HCL 0.4 MG CAP PO SCH (10:10)
[2017-05-15] MEDS: EDOXABAN TOSYLATE 60 MG TAB PO SCH (10:10)
[2017-05-15] MEDS: SPIRONOLACTONE 50 MG TAB PO SCH (10:11)
[2017-05-15] MEDS: HYDROCHLOROTHIAZIDE 25 MG TAB PO SCH (10:11)
[2017-05-15] MEDS: LISINOPRIL 20 MG TAB PO SCH (10:11)
[2017-05-15] MEDS: METOPROLOL TARTRATE 50 MG TAB PO SCH ×2 (10:11→20:56)
[2017-05-15] MEDS: DIGOXIN 0.25 MG TAB PO SCH (10:12)
[2017-05-15] MEDS: DILTIAZEM-CD 300 MG CAP ER PO SCH (10:12)
--- NOTE | 2017-05-15 13:12 | HHI.PR ---
Subjective Remarks Patient denies any chest pain or chest pressure. He has shortness of breath on exertion which is similar to days previous. He diuresed 3 L overnight. He does not feel there is any improvement in his edema. Although he does feel his abdominal edema has improved. Objective Vitals Vital Signs Date Time Temp Pulse Resp B/P (MAP) Pulse Ox O2 Delivery O2 Flow Rate FiO2 05/15/17 12:00 88 05/15/17 11:00 97.4 82 16 124/98 (107) 98 05/15/17 11:00 Nasal Cannula 5.00 40 05/15/17 11:00 76 05/15/17 10:00 89 05/15/17 09:00 77 05/15/17 07:33 96 Nasal Cannula 5.00 05/15/17 07:00 Nasal Cannula 5.00 40 Humidified 05/15/17 07:00 70 05/15/17 07:00 97.4 71 22 144/77 (99) 93 05/15/17 06:00 74 05/15/17 05:00 58 05/15/17 04:00 70 05/15/17 04:00 98.1 58 18 130/83 (99) 95 05/15/17 04:00 Nasal Cannula 5.00 Humidified 05/15/17 03:50 97 40 05/15/17 03:00 70 05/15/17 02:00 70 05/15/17 01:00 72 05/15/17 00:00 Nasal Cannula 5.00 Humidified 05/15/17 00:00 70 05/15/17 00:00 98.4 88 20 115/63 (80) 99 05/14/17 23:00 76 05/14/17 22:00 77 05/14/17 21:00 79 05/14/17 20:00 Nasal Cannula 5.00 Humidified 05/14/17 20:00 98.9 100 22 131/78 (95) 92 05/14/17 20:00 100 05/14/17 18:27 89 05/14/17 18:27 5.00 05/14/17 17:48 74 05/14/17 16:00 79 05/14/17 15:00 79 05/14/17 15:00 Nasal Cannula 5.00 40 Humidified 05/14/17 15:00 98.3 79 18 174/65 (101) 92 05/14/17 14:00 97 I/O 05/14/17 05/14/17 05/14/17 05/15/17 05/15/17 05/15/17 07:00 15:00 23:00 07:00 15:00 23:00 Intake Total 240 ml 900 ml 600 ml Output Total 2100 ml 1600 ml 2300 ml Balance -1860 ml -700 ml -1700 ml Intake Oral 240 ml 900 ml 600 ml Output Urine Total 2100 ml 1600 ml 2300 ml # Bowel Movements 0 0 Result Diagram: 05/13/17 1758 05/15/17 0708 Objective Remarks GENERAL: Well-nourished, well-developed pleasant middle-aged Afro-[place] male patient with morbid obesity. SKIN: Warm and dry. HEAD: Normocephalic. EYES: No scleral icterus. No injection or drainage. NECK: Supple, trachea midline. No JVD or lymphadenopathy. CARDIOVASCULAR: Regular rate and rhythm without murmurs, gallops, or rubs. RESPIRATORY: Breath sounds equal bilaterally. No accessory muscle use. GASTROINTESTINAL: Abdomen soft, non-tender, nondistended. EXTREMITIES: 2+ pitting edema extending up to the thighs and he has 1+ pitting edema of the lower abdomen. NEUROLOGICAL: Awake, alert, and oriented x 3. Non-focal. Procedures Left heart catheterization A/P Problem List: (1) Atrial flutter ICD Code: I48.92 - Unspecified atrial flutter Status: Acute (2) Cocaine abuse ICD Code: F14.10 - Cocaine abuse, uncomplicated (3) CRIS (obstructive sleep apnea) ICD Code: G47.33 - Obstructive sleep apnea (adult) (pediatric) Status: Chronic (4) Obesity hypoventilation syndrome ICD Code: E66.2 - Morbid (severe) obesity with alveolar hypoventilation Status: Chronic (5) Nonischemic cardiomyopathy ICD Code: I42.8 - Other cardiomyopathies Status: Chronic (6) COPD exacerbation ICD Code: J44.1 - Chronic obstructive pulmonary disease with (acute) exacerbation Status: Acute (7) Elevated troponin ICD Code: R74.8 - Abnormal levels of other serum enzymes Status: Acute (8) Accelerated hypertension ICD Code: I10 - Essential (primary) hypertension Status: Acute (9) CHF (congestive heart failure) ICD Code: I50.9 - Heart failure, unspecified (10) Acute and chronic respiratory failure ICD Code: J96.20 - Acute and chronic respiratory failure, unspecified whether with hypoxia or hypercapnia Status: Acute Assessment and Plan 51-year-old male admitted secondary to Saud dupree RVR with possible pneumonia, chest pain. New onset atrial fibrillation/atrial flutter with rapid ventricular rate Rate now controlled. Continue metoprolol, digoxin and Cardizem. I will change short acting Cardizem to long-acting. Check digoxin level in morning. -Edoxaban for anticoagulation -TSH within normal limits. Echocardiogram with EF of 30-35%. Nonischemic cardiomyopathy - LVEF 30-35% Had positive troponin and positive stress test however left heart catheter showed clean arteries. Continue metoprolol, lisinopril Has LifeVest Will follow-up as outpatient with Dr. Mckeon New onset CHF with acute systolic exacerbation -he still has significant pitting edema up to the lower abdomen but is diuresing very well with stable creatinine Continue IV Lasix 80 mg IV twice a day and repeat BMP in a.m. Continue to monitor urine output Acute and chronic resp failure due to above CTA was neg for PE Mild acute kidney injury creatinine 1.3 on admission, now normal. Follow BMP. Right lower lung infiltrate/community-acquired pneumonia, with hypoxia/acute respiratory failure - also has respiratory failure due to obesity hypoventilation, obstructive sleep apnea, COPD -Patient desaturates to the 80s immediately upon removal of oxygen -Continue diuresis, IV Rocephin and Zithromax (one more day) -Walk test as he will likely need home oxygen -Legionella and strep pneumonia antigen negative HTN -still not controlled. continue metoprolol, cardizem and lisinopril. add back HCTZ. start spironolactone which will help with the cardiomyopathy as well. Marijuana and cocaine abuse - patient has been counseled on cessation and that cocaine use may worsen his cardiomyopathy. Morbid obesity- Weight reduction has been recommended. A1c 5.4. COPD- Continue oxygen Nebulized treatments as needed DVT prophylaxis SCDs Lovenox 40 mg sq daily Discharge Planning Not ready for discharge he has 2+ edema OF lower abdomen and requires continued diuresis. Problem Qualifiers (1) Atrial flutter: Qualified Codes: I48.92 - Unspecified atrial flutter (2) CHF (congestive heart failure): Qualified Codes: I50.21 - Acute systolic (congestive) heart failure (3) Acute and chronic respiratory failure: Qualified Codes: J96.21 - Acute and chronic respiratory failure with hypoxia; J96.22 - Acute and chronic respiratory failure with hypercapnia Claudette Benson MD May 15, 2017 13:12
[2017-05-15] MEDS: AZITHROMYCIN INJ 500 MG in SODIUM CHLOR 0.9% 250 ML INJ 250 ML IV SCH (17:58)
[2017-05-15] MEDS: cefTRIAXone INJ 1,000 MG in SODIUM CHLORIDE 0.9% INJ 100 ML IV SCH (17:58)
[2017-05-16] VITALS (25 sets, daily range): BP systolic 121–159; BP diastolic 64–91; PULSE 65–100; RESP 18–20; TEMP 97.4–98.6; O2SAT 93–99
[2017-05-16] MEDS: SODIUM CHLORIDE 0.9% FLUSH 10 ML FLUSH IV FLUSH SCH ×2 (09:00→19:48)
[2017-05-16] MEDS: SPIRONOLACTONE 50 MG TAB PO SCH (10:44)
[2017-05-16] MEDS: METOPROLOL TARTRATE 50 MG TAB PO SCH ×2 (10:45→19:48)
[2017-05-16] MEDS: TAMSULOSIN HCL 0.4 MG CAP PO SCH (10:45)
[2017-05-16] MEDS: DILTIAZEM-CD 300 MG CAP ER PO SCH (10:45)
[2017-05-16] MEDS: HYDROCHLOROTHIAZIDE 25 MG TAB PO SCH (10:45)
[2017-05-16] MEDS: DIGOXIN 0.25 MG TAB PO SCH (10:45)
[2017-05-16] MEDS: EDOXABAN TOSYLATE 60 MG TAB PO SCH (10:46)
[2017-05-16] MEDS: LISINOPRIL 20 MG TAB PO SCH (10:46)
[2017-05-16] MEDS: METOLAZONE 5 MG TAB PO SCH (10:49)
--- NOTE | 2017-05-16 12:28 | HHI.PR ---
Subjective Remarks Diuresed only 300 mL out overnight. Dyspnea with exertion remains same as yesterday. Objective Vitals Vital Signs Date Time Temp Pulse Resp B/P (MAP) Pulse Ox O2 Delivery O2 Flow Rate FiO2 05/16/17 11:00 96 05/16/17 10:00 80 05/16/17 09:00 82 05/16/17 08:44 97.4 94 20 159/91 (113) 93 05/16/17 08:00 80 05/16/17 07:44 97 Nasal Cannula 5.00 05/16/17 07:00 74 05/16/17 07:00 Nasal Cannula 5.00 Humidified 05/16/17 06:00 77 05/16/17 05:00 84 05/16/17 04:00 98.0 82 18 131/82 (98) 95 05/16/17 04:00 82 05/16/17 04:00 Nasal Cannula 5.00 Humidified 05/16/17 03:00 84 05/16/17 02:00 79 05/16/17 01:00 81 05/16/17 00:00 75 05/15/17 23:56 98.1 75 18 124/75 (91) 96 05/15/17 23:56 Nasal Cannula 5.00 Humidified 05/15/17 23:00 81 05/15/17 22:00 74 05/15/17 21:00 86 05/15/17 20:00 Nasal Cannula 5.00 Humidified 05/15/17 20:00 98.4 96 20 161/81 (107) 95 05/15/17 20:00 96 05/15/17 18:00 89 05/15/17 17:00 86 05/15/17 16:00 79 05/15/17 15:00 Nasal Cannula 5.00 40 05/15/17 15:00 78 05/15/17 15:00 97.9 104 18 149/80 (103) 96 05/15/17 14:00 69 05/15/17 13:00 59 I/O 05/15/17 05/15/17 05/15/17 05/16/17 05/16/17 05/16/17 07:00 15:00 23:00 07:00 15:00 23:00 Intake Total 600 ml 1100 ml 600 ml Output Total 2300 ml 2000 ml 450 ml Balance -1700 ml 1100 ml -1400 ml -450 ml Intake Oral 600 ml 1100 ml 600 ml Output Urine Total 2300 ml 2000 ml 450 ml # Voids 6 # Bowel Movements 0 0 Result Diagram: 05/13/17 1758 05/15/17 0708 Objective Remarks GENERAL: Well-nourished, well-developed pleasant middle-aged Afro-[place] male patient with morbid obesity. SKIN: Warm and dry. HEAD: Normocephalic. EYES: No scleral icterus. No injection or drainage. NECK: Supple, trachea midline. No JVD or lymphadenopathy. CARDIOVASCULAR: Regular rate and rhythm without murmurs, gallops, or rubs. RESPIRATORY: Breath sounds equal bilaterally. No accessory muscle use. GASTROINTESTINAL: Abdomen soft, non-tender, nondistended. EXTREMITIES: 2+ pitting edema of lower extremities slightly improved with some wrinkling of skin and 1+ pitting edema of the lower thighs. Improvement today. NEUROLOGICAL: Awake, alert, and oriented x 3. Non-focal. Procedures Left heart catheterization A/P Problem List: (1) Atrial flutter ICD Code: I48.92 - Unspecified atrial flutter Status: Acute (2) Cocaine abuse ICD Code: F14.10 - Cocaine abuse, uncomplicated (3) CRIS (obstructive sleep apnea) ICD Code: G47.33 - Obstructive sleep apnea (adult) (pediatric) Status: Chronic (4) Obesity hypoventilation syndrome ICD Code: E66.2 - Morbid (severe) obesity with alveolar hypoventilation Status: Chronic (5) Nonischemic cardiomyopathy ICD Code: I42.8 - Other cardiomyopathies Status: Chronic (6) COPD exacerbation ICD Code: J44.1 - Chronic obstructive pulmonary disease with (acute) exacerbation Status: Acute (7) Elevated troponin ICD Code: R74.8 - Abnormal levels of other serum enzymes Status: Acute (8) Accelerated hypertension ICD Code: I10 - Essential (primary) hypertension Status: Acute (9) CHF (congestive heart failure) ICD Code: I50.9 - Heart failure, unspecified (10) Acute and chronic respiratory failure ICD Code: J96.20 - Acute and chronic respiratory failure, unspecified whether with hypoxia or hypercapnia Status: Acute Assessment and Plan 51-year-old male admitted secondary to A. fib RVR with possible pneumonia, chest pain. New onset atrial fibrillation/atrial flutter with rapid ventricular rate Rate now controlled. Continue metoprolol, digoxin and Cardizem. I will change short acting Cardizem to long-acting. Check digoxin level in morning. -Edoxaban for anticoagulation -TSH within normal limits. Echocardiogram with EF of 30-35%. Nonischemic cardiomyopathy - LVEF 30-35% Had positive troponin and positive stress test however left heart catheter showed clean arteries. Continue metoprolol, lisinopril, spironolactone Has LifeVest Will follow-up as outpatient with Dr. Mckeon New onset CHF with acute systolic exacerbation -diuresed only 300 mL out overnight. He has some improvement in the edema. Creatinine has been stable. Increase IV Lasix 80 mg from twice a day to 3 times a day, add Zaroxolyn, and repeat BMP in a.m. Continue to monitor urine output Continue fluid restriction Acute and chronic resp failure due to above CTA was neg for PE Mild acute kidney injury creatinine 1.3 on admission, now normal. Follow BMP. Right lower lung infiltrate/community-acquired pneumonia, with hypoxia/acute respiratory failure - also has respiratory failure due to obesity hypoventilation, obstructive sleep apnea, COPD -Patient desaturates to the 80s immediately upon removal of oxygen -Continue diuresis, IV Rocephin and Zithromax (one more day) -Walk test as he will likely need home oxygen -Legionella and strep pneumonia antigen negative HTN -improved today. Continue metoprolol, cardizem and lisinopril, HCTZ, spironolactone. Marijuana and cocaine abuse - patient has been counseled on cessation and that cocaine use may worsen his cardiomyopathy. Morbid obesity- Weight reduction has been recommended. A1c 5.4. COPD- Continue oxygen Nebulized treatments as needed DVT prophylaxis SCDs Lovenox 40 mg sq daily Discharge Planning Discharge home in 1-2 days pending improvement in diuresis. Problem Qualifiers (1) Atrial flutter: Qualified Codes: I48.92 - Unspecified atrial flutter (2) CHF (congestive heart failure): Qualified Codes: I50.21 - Acute systolic (congestive) heart failure (3) Acute and chronic respiratory failure: Qualified Codes: J96.21 - Acute and chronic respiratory failure with hypoxia; J96.22 - Acute and chronic respiratory failure with hypercapnia Claudette Benson MD May 16, 2017 12:28
[2017-05-16] MEDS: FUROSEMIDE 100 MG/10 ML VIAL IV PUSH SCH (17:33)
[2017-05-16 18:14] LABS: BICARBONATE 43.6 MEQ/L (21.0-32.0); POTASSIUM 3.9 MEQ/L (3.5-5.1)
[2017-05-16] MEDS: AZITHROMYCIN INJ 500 MG in SODIUM CHLOR 0.9% 250 ML INJ 250 ML IV SCH (18:26)
[2017-05-16] MEDS: cefTRIAXone INJ 1,000 MG in SODIUM CHLORIDE 0.9% INJ 100 ML IV SCH (18:28)
[2017-05-17] VITALS (11 sets, daily range): BP systolic 129–136; BP diastolic 66–73; PULSE 50–79; RESP 16–18; TEMP 98.1–98.4; O2SAT 96–97
[2017-05-17] MEDS: FUROSEMIDE 100 MG/10 ML VIAL IV PUSH SCH ×2 (01:16→10:22)
[2017-05-17 07:08] LABS: ANION GAP 4 MEQ/L (5-15); BICARBONATE GREATER THAN 45.0 MEQ/L (21.0-32.0); BLOOD UREA NITROGEN 24 MG/DL (7-18); CHLORIDE 84 MEQ/L (98-107); GLOMERULAR FILTRATION RATE 85 ML/MIN (>89); POTASSIUM 3.9 MEQ/L (3.5-5.1); SODIUM (NA) 133 MEQ/L (136-145)
[2017-05-17] MEDS: SODIUM CHLORIDE 0.9% FLUSH 10 ML FLUSH IV FLUSH SCH (09:00)
[2017-05-17] MEDS: METOLAZONE 5 MG TAB PO SCH (09:00)
--- NOTE | 2017-05-17 10:04 | HHI.DS ---
Discharge Summary Admission Date May 08, 2017 at 16:13 Discharge Date: May 17, 2017 Admitting Diagnosis Afib RVR; Elevated Tn (1) Atrial flutter ICD Code: I48.92 - Unspecified atrial flutter Status: Acute (2) Cocaine abuse ICD Code: F14.10 - Cocaine abuse, uncomplicated (3) CRIS (obstructive sleep apnea) ICD Code: G47.33 - Obstructive sleep apnea (adult) (pediatric) Status: Chronic (4) Obesity hypoventilation syndrome ICD Code: E66.2 - Morbid (severe) obesity with alveolar hypoventilation Status: Chronic (5) Nonischemic cardiomyopathy ICD Code: I42.8 - Other cardiomyopathies Status: Chronic (6) COPD exacerbation ICD Code: J44.1 - Chronic obstructive pulmonary disease with (acute) exacerbation Status: Acute (7) Elevated troponin ICD Code: R74.8 - Abnormal levels of other serum enzymes Status: Acute (8) Accelerated hypertension ICD Code: I10 - Essential (primary) hypertension Status: Acute (9) CHF (congestive heart failure) ICD Code: I50.9 - Heart failure, unspecified (10) Acute and chronic respiratory failure ICD Code: J96.20 - Acute and chronic respiratory failure, unspecified whether with hypoxia or hypercapnia Status: Acute Procedures Left heart catheterization Brief History - From Admission This is a 51-year-old male with a history of morbid obesity and COPD. He presents to the emergency department complaining of chest pain and shortness of breath. States he has three-day history of intermittent right sided sharp moderate to severe exertional chest pain lasting for a few minutes without radiation and associated nausea, palpitations, dizziness and diaphoresis. He also has chronic dyspnea on exertion worse lately associated with orthopnea. He also has chronic bilateral lower extremity swelling. No fever and chills. He also started having productive cough with whitish phlegm and wheezing. All other systems reviewed negative. In the emergency department, EKG shows atrial flutter with RVR and received IV diltiazem 20 mg followed by 15 mg still in RVR. Denies illicit drug use except marijuana CBC/BMP: 05/13/17 1758 05/17/17 0551 Significant Findings Laboratory Tests Test 05/15/17 07:08 05/16/17 16:55 05/17/17 05:51 Chloride Level 94 MEQ/L (98-107) 88 MEQ/L (98-107) 84 MEQ/L (98-107) Carbon Dioxide Level 42.3 MEQ/L (21.0-32.0) 43.6 MEQ/L (21.0-32.0) GREATER THAN 45.0 MEQ/L Anion Gap 1 MEQ/L (5-15) 4 MEQ/L (5-15) Blood Urea Nitrogen 20 MG/DL (7-18) 24 MG/DL (7-18) Creatinine 1.34 MG/DL (0.60-1.30) Estimat Glomerular Filtration Rate 68 ML/MIN (>89) 85 ML/MIN (>89) Sodium Level 133 MEQ/L (136-145) Imaging Last Impressions Myocardial Perfusion Scan Nuc Med 05/10/17 0000 Signed Impressions: Service Date/Time: Thursday, May 11, 2017 09:21 - CONCLUSION: 1. Scintigraphic findings concerning for severe ischemia in the inferior wall extending into the inferoseptal and inferolateral portions of the myocardium. 2. 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 3. Akinesis of the septum with paradoxical motion near the apex. Hypokinesis in the anterior and inferior paz. Reduced ejection fraction of 48%% RISK CATEGORY: High (>3%% Annual Mortality Rate ) Justice Padilla MD CT Angiography 05/08/17 1541 Signed Impressions: Service Date/Time: Monday, May 08, 2017 16:22 - CONCLUSION: 1. No evidence of pulmonary embolism. 2. Mild right lower lung infiltrate with small right effusion. 3. Moderate diffuse cardiomegaly. David Phan MD Chest X-Ray 05/08/17 1343 Signed Impressions: Service Date/Time: Monday, May 08, 2017 13:53 - CONCLUSION: 1. Pulmonary venous congestion 2. Moderate stable cardiomegaly. David Phan MD PE at Discharge GENERAL: Well-nourished, well-developed pleasant middle-aged Afro-Spanish Spanish male patient with morbid obesity. SKIN: Warm and dry. HEAD: Normocephalic. EYES: No scleral icterus. No injection or drainage. NECK: Supple, trachea midline. No JVD or lymphadenopathy. CARDIOVASCULAR: Regular rate and rhythm without murmurs, gallops, or rubs. RESPIRATORY: Breath sounds equal bilaterally. No accessory muscle use. GASTROINTESTINAL: Abdomen soft, non-tender, nondistended. EXTREMITIES: trace pedal edema in calves - MUCH IMPROVED NEUROLOGICAL: Awake, alert, and oriented x 3. Non-focal. Pt update on day of discharge Doing well, O2 decreased to 3L, he diuresed 5 liters. Hospital Course 51-year-old male admitted secondary to Saud dupree RVR with possible pneumonia, chest pain. New onset atrial fibrillation/atrial flutter with rapid ventricular rate Rate now controlled. Continue metoprolol, digoxin and Cardizem. -Edoxaban for anticoagulation -TSH within normal limits. Echocardiogram with EF of 30-35%. Nonischemic cardiomyopathy - LVEF 30-35% Had positive troponin and positive stress test however left heart catheter showed clean arteries. Continue metoprolol, lisinopril, spironolactone Has LifeVest Will follow-up as outpatient with Dr. Mckeon New onset CHF with acute systolic exacerbation - had massive pitting edema up to abdomen on admission - diuresed 22 liters this admission now trace pedal edema in calves transition to lasix 40 mg PO BID. continue fluid restriction 1500 ml, low salt diet patient counseled on this Mild acute kidney injury creatinine 1.3 on admission, now normal. Acute and chronic resp failure, Right lower lung infiltrate/community-acquired pneumonia, with hypoxia/acute respiratory failure - also has respiratory failure due to obesity hypoventilation, obstructive sleep apnea, COPD -improved, weaned to 3L NC - s/p course of Rocephin and Zithromax -s/p diuresis -home O2 arranged HTN -improved today. Continue metoprolol, cardizem and lisinopril, HCTZ, spironolactone. Marijuana and cocaine abuse - patient has been counseled on cessation and that cocaine use may worsen his cardiomyopathy. Morbid obesity- Weight reduction has been recommended. A1c 5.4. Medicaid application was started. F/u with card Dr. Mckeon in 1 week. F/u at [facility] for PCP. Prescriptions provided to patient. >20 minutes education on CHF provided. Pt Condition on Discharge: Stable Discharge Disposition: Discharge Home Discharge Time: > 30 minutes Discharge Instructions DIET: Follow Instructions for: Heart Healthy Diet Additional Diet Instructions: <2g Na diet Fluid Restrictions: 1500 ml (50 oz) Activities you can perform: Regular-No Restrictions Follow up Referrals: Cardiology - 2 Weeks with Donovan Mckeon PCP Follow-up - 1 Week @ [facility] New Medications: Defibrillator Jacket (Defibrillator Jacket) 1 Ea Device EA EXTERNAL ONCE for cardiomyopathy, #1 3 Refills Energy = 150 Joules; VT Threshold = 150 BPM; VF Threshold = 200 BPM Use up to 90 days only Furosemide (Lasix) 40 Mg Tab 40 MG PO BID for control swelling, #60 TAB 0 Refills Oxygen (O2) (Oxygen (O2)) Inha LITER KATHARINE.CANULA CONTINUOUS for Prevent Hypoxemia, #5 Oxygen Concentrator Portable Gaseous 2 L/min via Nasal Canula Continuous For 99 months Spironolactone (Spironolactone) 50 Mg Tab 50 MG PO DAILY for build heart muscle, #30 TAB 0 Refills Digoxin (Digoxin) 0.25 Mg Tab 0.25 MG PO DAILY for control heart rate, #30 TAB Diltiazem CD 24 HR (Diltiazem CD 24 HR) 300 Mg Caper 300 MG PO DAILY for control heart rate, #30 CAP Edoxaban (Savaysa) 60 Mg Tab 60 MG PO DAILY for blood thinner, #30 TAB Metoprolol Tartrate (Lopressor) 50 Mg Tab 50 MG PO Q12HR for build heart muscle, #60 TAB Tamsulosin (Flomax) 0.4 Mg Cap 0.4 MG PO DAILY for bph, #30 CAP Continued Medications: Hydrochlorothiazide (Hydrochlorothiazide) 25 Mg Tab 25 MG PO DAILY for Blood Pressure Management, #30 TAB (This prescription has been renewed) Lisinopril (Lisinopril) 20 Mg Tab 40 MG PO DAILY for Blood Pressure Management, #30 TAB (This prescription has been renewed) Discontinued Medications: Azithromycin (Azithromycin) 250 Mg Tab 250 MG PO DAILY for Infection, #3 TAB 0 Refills Cefuroxime (Ceftin) 500 Mg Tab 500 MG PO BID for Infection, #10 TAB 0 Refills Prednisone (21) 10 mg tab Dose Pack (Prednisone (21) 10 mg tab Dose Pack) 10 Mg Pack 10 MG PO DIRECTED for Inflammation, #1 DSPK 0 Refills Claudette Benson MD May 17, 2017 10:04
[2017-05-17] MEDS: TAMSULOSIN HCL 0.4 MG CAP PO SCH (10:20)
[2017-05-17] MEDS: METOPROLOL TARTRATE 50 MG TAB PO SCH (10:20)
[2017-05-17] MEDS: SPIRONOLACTONE 50 MG TAB PO SCH (10:20)
[2017-05-17] MEDS: LISINOPRIL 20 MG TAB PO SCH (10:20)
[2017-05-17] MEDS: HYDROCHLOROTHIAZIDE 25 MG TAB PO SCH (10:20)
[2017-05-17] MEDS: DILTIAZEM-CD 300 MG CAP ER PO SCH (10:20)
[2017-05-17] MEDS: DIGOXIN 0.25 MG TAB PO SCH (10:21)
[2017-05-17] MEDS: EDOXABAN TOSYLATE 60 MG TAB PO SCH (10:21)
== END 2017-05-17 11:59 | disposition home or self-care (01) | DRG 286 ==
LOC: NEPE 13:27 → NEDA 15:44 → OBSVTOIN 16:13 → HCIS 19:15
PROVIDERS: ADMIT Internal Medicine; ATTEND Family Medicine
PROC: B2111ZZ Fluoroscopy of Multiple Coronary Arteries using Low Osmolar Contrast (ICD-10-PCS; 2017-05-12)
PROC: 4A023N7 Measurement of Cardiac Sampling and Pressure, Left Heart, Percutaneous Approach (ICD-10-PCS; principal; 2017-05-12 08:30)
DX: I48.92 Unspecified atrial flutter (principal); I50.21 Acute systolic (congestive) heart failure; J96.21 Acute and chronic respiratory failure with hypoxia; J18.9 Pneumonia, unspecified organism; N17.9 Acute kidney failure, unspecified; I42.8 Other cardiomyopathies; I11.0 Hypertensive heart disease with heart failure; J44.0 Chronic obstructive pulmonary disease with (acute) lower respiratory infection; Z68.41 Body mass index [BMI] 40.0-44.9, adult; J96.22 Acute and chronic respiratory failure with hypercapnia; E66.2 Morbid (severe) obesity with alveolar hypoventilation; J44.1 Chronic obstructive pulmonary disease with (acute) exacerbation; I48.1 Persistent atrial fibrillation; G47.33 Obstructive sleep apnea (adult) (pediatric); F12.90 Cannabis use, unspecified, uncomplicated; F14.10 Cocaine abuse, uncomplicated; I25.2 Old myocardial infarction
CPT/HCPCS: 71010; 71275; 78452; 80048; 80053; 80061; 80162; 80307; 82550; 82552; 83036; 83735; 83880; 84443; 84484; 85025; 85610; 85730; 87040; 87449; 93005; 93017; 93306; 93458; 94002; 94003; 94620; A9502; C1769; C1893; J0456; J0696; J1160; J1644; J1940; J2250; J2785; J3010; J7050; Q9967

== ENCOUNTER 2017-06-27 11:10 | Emergency (ER) | payer OTHER ==
[~2017-06-27] VITALS: Ht 182.9 cm; Wt 138.0 kg
[~2017-06-27 11:10] MED LIST changes: -AZIT250T3 PO; -CEFT500T3 PO; +DEFIB EXTERNAL; +DIGO0.25 PO; +DILT300C3 PO; +EDOX1TAB5 PO; +FURO1TAB60 PO; +METO-309 PO; +OXYGEN NAS.CANULA; -PRED10PA PO; +SPIR50TA PO; +TAMS5CAP PO
[2017-06-27 11:12] VITALS: BP 171/114; PULSE 141; RESP 15; TEMP 99.1; O2SAT 97
[2017-06-27 11:56] VITALS: O2SAT 97
[2017-06-27] MEDS ORDERED: LABETALOL HCL 100 MG/20 ML VIAL IV PUSH ONE (12:00)
--- NOTE | 2017-06-27 12:04 | PD ---
HPI Chief Complaint: Medication Refill Request Time Seen by Provider: 11:43 Travel History International Travel<30 days: No Contact w/Intl Traveler<30days: No Traveled to known affect area: No History of Present Illness HPI 51-year-old male requesting medication refill. Patient has history of atrial flutter, substance abuse including cocaine, obstructive sleep apnea, obesity hypoventilation syndrome, nonischemic cardiomyopathy, COPD, hypertension, CHF, chronic respiratory failure on home O2. Patient states that he ran out of all his medications. Patient states that he has shortness of breath. Patient denies any headache. Patient denies any chest pain. Patient denies abdominal pain. Patient denies any focal weakness or numbness of extremity. Patient denies any coughing congestion fever chills. PFSH Past Medical History Cancer: No Cardiovascular Problems: Yes Congestive Heart Failure: Yes Coronary Artery Disease: No Diabetes: No Endocrine: No Gastrointestinal Disorders: No Genitourinary: No Hypertension: Yes Immune Disorder: No Implanted Vascular Access Dvce: No Musculoskeletal: No Neurologic: No Psychiatric: No Reproductive: No Respiratory: Yes Past Surgical History Other Surgery: No Social History Alcohol Use: No Tobacco Use: No Substance Use: Yes (MARIJUANA) Allergies-Medications (Allergen,Severity, Reaction): Coded Allergies: No Known Allergies (Unverified Adverse Reaction, Unknown, 06/27/17) Reported Meds & Prescriptions Reported Meds & Active Scripts Active Diltiazem CD 24 HR 300 Mg Caper 300 Mg PO DAILY Spironolactone 50 Mg Tab 50 Mg PO DAILY Lasix (Furosemide) 40 Mg Tab 40 Mg PO BID Lopressor (Metoprolol Tartrate) 50 Mg Tab 50 Mg PO Q12HR Digoxin 0.25 Mg Tab 0.25 Mg PO DAILY Savaysa (Edoxaban) 60 Mg Tab 60 Mg PO DAILY Flomax (Tamsulosin HCl) 0.4 Mg Cap 0.4 Mg PO DAILY Lisinopril 20 Mg Tab 40 Mg PO DAILY Hydrochlorothiazide 25 Mg Tab 25 Mg PO DAILY Oxygen (O2) (Miscellaneous Medication) Inha Liter KATHARINE.CANULA CONTINUOUS Oxygen Concentrator Portable Gaseous 2 L/min via Nasal Canula Continuous For 99 months Defibrillator Jacket (Device) 1 Ea Device Ea EXTERNAL ONCE Energy = 150 Joules; VT Threshold = 150 BPM; VF Threshold = 200 BPM Use up to 90 days only Review of Systems General / Constitutional: No: Fever Eyes: No: Visual changes HENT: No: Headaches Cardiovascular: No: Chest Pain or Discomfort Respiratory: Positive: Shortness of Breath Gastrointestinal: No: Abdominal Pain Genitourinary: No: Dysuria Musculoskeletal: No: Pain Skin: No Rash Neurologic: No: Weakness Psychiatric: No: Depression Endocrine: No: Polydipsia Hematologic/Lymphatic: No: Easy Bruising Physical Exam Narrative GENERAL: Well-nourished, well-developed patient. SKIN: Focused skin assessment warm/dry. HEAD: Normocephalic. EYES: No scleral icterus. No injection or drainage. NECK: Supple, trachea midline. No JVD or lymphadenopathy. CARDIOVASCULAR: Irregular tachycardia rate and rhythm without murmurs, gallops, or rubs. RESPIRATORY: Breath sounds equal bilaterally. No accessory muscle use. GASTROINTESTINAL: Abdomen soft, non-tender, nondistended. MUSCULOSKELETAL: +1 pitting edema lower extremity. BACK: Nontender without obvious deformity. No CVA tenderness. Neurologic exam normal. Data Data Last Documented VS Vital Signs Date Time Temp Pulse Resp B/P (MAP) Pulse Ox O2 Delivery O2 Flow Rate FiO2 06/27/17 12:34 137 18 125/96 (106) 98 Nasal Cannula 2.00 06/27/17 11:12 99.1 Orders Orders Electrocardiogram (06/27/17 11:52) Complete Blood Count With Diff (06/27/17 11:52) Basic Metabolic Panel (Bmp) (06/27/17 11:52) B-Type Natriuretic Peptide (06/27/17 11:52) Digoxin (06/27/17 11:52) Thyroid Stimulating Hormone (06/27/17 11:52) Iv Access Insert/Monitor (06/27/17 11:52) Ecg Monitoring (06/27/17 11:52) Oximetry (06/27/17 11:52) Labetalol Inj (Trandate Inj) (06/27/17 12:00) Chest, Single Ap (06/27/17 11:57) Diltiazem Inj (Cardizem Inj) (06/27/17 12:15) Labs Laboratory Tests Test 06/27/17 12:15 White Blood Count 13.3 TH/MM3 Red Blood Count 4.05 MIL/MM3 Hemoglobin 10.4 GM/DL Hematocrit 33.7 % Mean Corpuscular Volume 83.1 FL Mean Corpuscular Hemoglobin 25.7 PG Mean Corpuscular Hemoglobin Concent 30.9 % Red Cell Distribution Width 16.4 % Platelet Count 309 TH/MM3 Mean Platelet Volume 7.5 FL Neutrophils (%) (Auto) 75.8 % Lymphocytes (%) (Auto) 15.5 % Monocytes (%) (Auto) 6.1 % Eosinophils (%) (Auto) 2.2 % Basophils (%) (Auto) 0.4 % Neutrophils # (Auto) 10.0 TH/MM3 Lymphocytes # (Auto) 2.1 TH/MM3 Monocytes # (Auto) 0.8 TH/MM3 Eosinophils # (Auto) 0.3 TH/MM3 Basophils # (Auto) 0.1 TH/MM3 CBC Comment DIFF FINAL Differential Comment Blood Urea Nitrogen 11 MG/DL Creatinine 0.74 MG/DL Random Glucose 129 MG/DL Calcium Level 8.5 MG/DL Sodium Level 140 MEQ/L Potassium Level 3.8 MEQ/L Chloride Level 102 MEQ/L Carbon Dioxide Level 35.1 MEQ/L Anion Gap 3 MEQ/L Estimat Glomerular Filtration Rate 134 ML/MIN MDM Medical Decision Making Medical Screen Exam Complete: Yes Emergency Medical Condition: Yes Interpretation(s) Last Impressions Chest X-Ray 06/27/17 1157 Signed Impressions: Service Date/Time: Tuesday, June 27, 2017 12:01 - CONCLUSION: No acute disease. Radiographic abnormality to suggest congestive heart failure. Fatimah Rust MD CBC WBC 13.3. Hemoglobin 10 point hematocrit 33.7. 75 neutrophil. Bicarbonate 35. Glucose 129. Differential Diagnosis Differential diagnosis including atrial flutter with RVR, uncontrolled hypertension, hypertensive urgency, hypertensive crisis. Narrative Course 51-year-old male with history of atrial flutter, sleep apnea, obesity, ischemic cardiomyopathy, COPD, hypertension, CHF, chronic respiratory failure, complains of shortness of breath. Patient ran out of medication for the past 2 days. Patient has tachycardia and elevated blood pressure. Cardizem 20 mg IV given. Blood pressure and pulse under control. Diagnosis Primary Impression: Atrial flutter with rapid ventricular response Additional Impression: Uncontrolled hypertension Patient Instructions: General Instructions Additional Instructions: Take medications as directed. Follow-up with personal physician. Return if worse. Med/Other Pt SpecificInfo: Prescription(s) given Scripts Tamsulosin (Flomax) 0.4 Mg Cap 0.4 MG PO HS for Manage Prostate Problems, #30 CAP 0 Refills Prov: Michel Lyles MD 06/27/17 Edoxaban (Savaysa) 60 Mg Tab 60 MG PO DAILY for Blood Clot Prevention, #30 TAB 0 Refills Prov: Michel Lyles MD 06/27/17 Digoxin (Digoxin) 0.25 Mg Tab 0.25 MG PO DAILY for Regulate Heart Beat, #30 TAB 0 Refills Prov: Michel Lyles MD 06/27/17 Metoprolol Tartrate (Metoprolol Tartrate) 50 Mg Tab 50 MG PO BID, #60 TAB 0 Refills Prov: Michel Lyles MD 06/27/17 Diltiazem CD 24 HR (Diltiazem CD 24 HR) 300 Mg Caper 300 MG PO DAILY, #30 CAP 0 Refills Prov: Michel Lyles MD 06/27/17 Lisinopril (Lisinopril) 40 Mg Tab 40 MG PO DAILY for Blood Pressure Management, #30 TAB 0 Refills Prov: Michel Lyles MD 06/27/17 Spironolactone (Spironolactone) 50 Mg Tab 50 MG PO DAILY, #30 TAB 0 Refills Prov: Michel Lyles MD 06/27/17 Furosemide (Lasix) 40 Mg Tab 40 MG PO BID, #60 TAB 0 Refills Prov: Michel Lyles MD 06/27/17 Hydrochlorothiazide (Hydrochlorothiazide) 25 Mg Tab 25 MG PO DAILY, #30 TAB 0 Refills Prov: Michel Lyles MD 06/27/17 Disposition: 01 DISCHARGE HOME Condition: Stable Michel Lyles MD Jun 27, 2017 12:04
[2017-06-27] MEDS ORDERED: DILTIAZEM HCL 25 MG/5 ML VIAL IV ONE (12:15)
--- NOTE | 2017-06-27 12:20 | RADRPT ---
EXAM DATE/TIME: 06/27/2017 12:01 [facility] COMPARISON: CHEST SINGLE AP, May 08, 2017, 13:53. INDICATIONS : Short of breath MEDICAL HISTORY : Chronic obstructive pulmonary disease. Hypertension SURGICAL HISTORY : ENCOUNTER: Initial ACUITY: 4 - 6 months PAIN SCORE: 0/10 LOCATION: Bilateral chest FINDINGS: A single view of the chest demonstrates the lungs to be symmetrically aerated without evidence of mas s, infiltrate or effusion. The cardiomediastinal contours are unremarkable. Osseous structures are intact. Overlying pacing pads are noted. CONCLUSION: No acute disease. Radiographic abnormality to suggest congestive heart failure. Fatimah Rust MD on June 27, 2017 at 12:17 Board Certified Radiologist. This report was verified electronically.
[2017-06-27 12:34] VITALS: BP 125/96; PULSE 137; RESP 18; O2SAT 98
[2017-06-27 12:35] LABS: BASOPHIL # 0.1 TH/MM3 (0-0.2); BASOPHIL % 0.4 % (0.0-2.0); EOSINOPHIL # 0.3 TH/MM3 (0-0.4); EOSINOPHIL % 2.2 % (0.0-4.0); HEMATOCRIT 33.7 % (39.0-51.0); HEMOGLOBIN 10.4 GM/DL (13.0-17.0); LYMPH % 15.5 % (9.0-44.0); LYMPHOCYTE # 2.1 TH/MM3 (1.0-4.8); MEAN CELL VOLUME 83.1 FL (80.0-100.0); MEAN CORPUSCULAR HEMOGLOBIN 25.7 PG (27.0-34.0); MEAN CORPUSCULAR HGB CONC 30.9 % (32.0-36.0); MEAN PLATELET VOLUME 7.5 FL (7.0-11.0); MONO % 6.1 % (0.0-8.0); MONOCYTE # 0.8 TH/MM3 (0-0.9); NEUT % 75.8 % (16.0-70.0); PLATELET COUNT 309 TH/MM3 (150-450); RED BLOOD COUNT 4.05 MIL/MM3 (4.50-5.90); RED CELL DISTRIBUTION WIDTH 16.4 % (11.6-17.2); WHITE BLOOD COUNT 13.3 TH/MM3 (4.0-11.0)
[2017-06-27 12:54] LABS: BICARBONATE 35.1 MEQ/L (21.0-32.0); CALCIUM 8.5 MG/DL (8.5-10.1); CREATININE 0.74 MG/DL (0.60-1.30)
[2017-06-27 13:07] LABS: DIGOXIN 0.1 NG/ML (0.8-2.0)
[2017-06-27] MEDS ORDERED: DIGO0.25 PO (13:13)
[2017-06-27] MEDS ORDERED: FURO1TAB60 PO (13:13)
[2017-06-27] MEDS ORDERED: SPIR50TA PO (13:13)
[2017-06-27] MEDS ORDERED: HYDR25TA5 PO (13:13)
[2017-06-27] MEDS ORDERED: DILT300C3 PO (13:13)
[2017-06-27] MEDS ORDERED: TAMS5CAP PO (13:13)
[2017-06-27] MEDS ORDERED: LISI40TA PO (13:13)
[2017-06-27] MEDS ORDERED: EDOX1TAB5 PO (13:13)
[2017-06-27] MEDS ORDERED: METO50TA PO (13:13)
[2017-06-27 13:41] VITALS: BP 171/82; PULSE 114; RESP 18; O2SAT 99
--- NOTE | 2017-06-28 19:20 | EKG ---
Date Performed: 06/27/2017 Time Performed: 12:09:28 PTAGE: 51 years EKG: ATRIAL FLUTTER/TACHYCARDIA WITH RAPID VENTRICULAR RESPONSE NONSPECIFIC ST & T-WAVE ABNORMAL ITY Since previous tracing, no significant change noted ABNORMAL ECG PREVIOUS TRACING : 05/09/2017 01.47 DOCTOR: Tej Spence Interpretating Date/Time 06/28/2017 19:17:48
== END 2017-06-27 13:48 | disposition home or self-care (01) ==
LOC: NEPD 11:10
DX: I48.92 Unspecified atrial flutter (principal); I11.0 Hypertensive heart disease with heart failure; I50.9 Heart failure, unspecified
CPT/HCPCS: 71045; 80048; 80162; 83880; 84443; 85025; 93005; 96374

== ENCOUNTER 2017-07-22 09:37 | Emergency (ER) | payer MEDICAID, OTHER ==
[~2017-07-22] VITALS: Ht 182.9 cm; Wt 150.0 kg
[~2017-07-22 09:37] MED LIST changes: +LISI40TA PO; +METO50TA PO
[2017-07-22 09:38] VITALS: BP 151/70; PULSE 75; RESP 18; TEMP 97.7; O2SAT 96
[2017-07-22 10:13] VITALS: BP 109/57; PULSE 81; RESP 18; TEMP 98.4; O2SAT 99
--- NOTE | 2017-07-22 10:54 | PD ---
HPI Chief Complaint: Abnormal Results Time Seen by Provider: 10:53 Travel History International Travel<30 days: No Contact w/Intl Traveler<30days: No Traveled to known affect area: No History of Present Illness HPI 51-year-old male came to the emergency room with history of noticing blood in his stool this morning. Patient says he saw some last night as well. When it continued this morning decided to come into the emergency room. No history of pain. It has never happened to him before. Patient is not on any blood thinners. Vital signs are stable. He has been diagnosed with congestive heart failure with low EF. He has an external defibrillator on currently. He does not have a primary care physician. Patient does not appear to be in any significant distress. [facility] Past Medical History Narrative Medical List of his past medical, surgical, social and family history is reviewed from the nursing note. Cardiovascular Problems: Yes Congestive Heart Failure: Yes COPD: Yes Hypertension: Yes Medical other: Yes (LIFEVEST) Respiratory: Yes Tetanus Vaccination: Unknown Influenza Vaccination: No Past Surgical History Surgical History: No Previous Surgery Social History Alcohol Use: No Tobacco Use: No Substance Use: No (HX MARIJUANA) Allergies-Medications (Allergen,Severity, Reaction): Coded Allergies: No Known Allergies (Unverified Adverse Reaction, Unknown, 07/22/17) Comments No known drug allergies. Reported Meds & Prescriptions Reported Meds & Active Scripts Active Flomax (Tamsulosin HCl) 0.4 Mg Cap 0.4 Mg PO HS Lisinopril 40 Mg Tab 40 Mg PO DAILY Spironolactone 50 Mg Tab 50 Mg PO DAILY Diltiazem CD 24 HR 300 Mg Caper 300 Mg PO DAILY Lasix (Furosemide) 40 Mg Tab 40 Mg PO BID Lopressor (Metoprolol Tartrate) 50 Mg Tab 50 Mg PO Q12HR Digoxin 0.25 Mg Tab 0.25 Mg PO DAILY Savaysa (Edoxaban) 60 Mg Tab 60 Mg PO DAILY Hydrochlorothiazide 25 Mg Tab 25 Mg PO DAILY Oxygen (O2) (Miscellaneous Medication) Inha Liter KATHARINE.CANULA CONTINUOUS Oxygen Concentrator Portable Gaseous 2 L/min via Nasal Canula Continuous For 99 months Defibrillator Jacket (Device) 1 Ea Device Ea EXTERNAL ONCE Energy = 150 Joules; VT Threshold = 150 BPM; VF Threshold = 200 BPM Use up to 90 days only Narrative Medication List of his home medications reviewed from the nursing note. Review of Systems Except as stated in HPI: all other systems reviewed are Neg Gastrointestinal: Positive: Hematochezia Physical Exam Narrative GENERAL: Awake, alert, obese, no obvious distress SKIN: Focused skin assessment warm/dry. HEAD: Atraumatic. Normocephalic. EYES: Pupils equal and round. No scleral icterus. No injection or drainage. ENT: No nasal bleeding or discharge. Mucous membranes pink and moist. NECK: Trachea midline. No JVD. CARDIOVASCULAR: Regular rate and rhythm. No murmur appreciated. RESPIRATORY: No accessory muscle use. Clear to auscultation. Breath sounds equal bilaterally. GASTROINTESTINAL: Abdomen soft, non-tender, nondistended. Hepatic and splenic margins not palpable. Rectal exam does not show any hemorrhoids. MUSCULOSKELETAL: No obvious deformities. No clubbing. No cyanosis. No edema. NEUROLOGICAL: Awake and alert. No obvious cranial nerve deficits. Motor grossly within normal limits. Normal speech. PSYCHIATRIC: Appropriate mood and affect; insight and judgment normal. Data Data Last Documented VS Orders Orders Complete Blood Count With Diff (07/22/17 10:59) Basic Metabolic Panel (Bmp) (07/22/17 10:59) Prothrombin Time / Inr (Pt) (07/22/17 11:01) Ed Discharge Order (07/22/17 12:11) Labs Laboratory Tests Test 07/22/17 11:10 White Blood Count 13.8 TH/MM3 Red Blood Count 4.49 MIL/MM3 Hemoglobin 11.8 GM/DL Hematocrit 37.3 % Mean Corpuscular Volume 83.0 FL Mean Corpuscular Hemoglobin 26.3 PG Mean Corpuscular Hemoglobin Concent 31.7 % Red Cell Distribution Width 14.7 % Platelet Count 356 TH/MM3 Mean Platelet Volume 7.2 FL Neutrophils (%) (Auto) 73.2 % Lymphocytes (%) (Auto) 17.9 % Monocytes (%) (Auto) 7.3 % Eosinophils (%) (Auto) 1.3 % Basophils (%) (Auto) 0.3 % Neutrophils # (Auto) 10.1 TH/MM3 Lymphocytes # (Auto) 2.5 TH/MM3 Monocytes # (Auto) 1.0 TH/MM3 Eosinophils # (Auto) 0.2 TH/MM3 Basophils # (Auto) 0.0 TH/MM3 CBC Comment DIFF FINAL Differential Comment Prothrombin Time 11.0 SEC Prothromb Time International Ratio 1.1 RATIO Blood Urea Nitrogen 21 MG/DL Creatinine 0.94 MG/DL Random Glucose 90 MG/DL Calcium Level 9.0 MG/DL Sodium Level 136 MEQ/L Potassium Level 4.2 MEQ/L Chloride Level 98 MEQ/L Carbon Dioxide Level 35.8 MEQ/L Anion Gap 2 MEQ/L Estimat Glomerular Filtration Rate 102 ML/MIN MDM Medical Decision Making Medical Screen Exam Complete: Yes Emergency Medical Condition: Yes Medical Record Reviewed: Yes Differential Diagnosis Rectal bleed, upper GI bleed Narrative Course 12:17 PM blood test shows some leukocytosis but that's not different from the last blood test. H&H is stable. I'm comfortable discharging him home given the negative Hemoccult. Procedures EKG Prior to Arrival: No HemaPrompt Point of Care Internal Pos. & Neg. Controls: Passed Fecal Specimen Occult Blood: Negative Diagnosis Primary Impression: Hematochezia Referrals: Primary Care Physician Additional Instructions: Follow-up with your primary care. If the symptoms continue to give your referral to a GI specialist. If symptoms worsen you need to come back to the emergency room. Med/Other Pt SpecificInfo: No Change to Meds Disposition: 01 DISCHARGE HOME Condition: Stable Rolan White MD Jul 22, 2017 10:54
[2017-07-22 11:26] LABS: AUTOMATED NEUTROPHIL # 10.1 TH/MM3 (1.8-7.7); BASOPHIL % 0.3 % (0.0-2.0); EOSINOPHIL # 0.2 TH/MM3 (0-0.4); EOSINOPHIL % 1.3 % (0.0-4.0); HEMATOCRIT 37.3 % (39.0-51.0); HEMOGLOBIN 11.8 GM/DL (13.0-17.0); LYMPH % 17.9 % (9.0-44.0); LYMPHOCYTE # 2.5 TH/MM3 (1.0-4.8); MEAN CORPUSCULAR HEMOGLOBIN 26.3 PG (27.0-34.0); MEAN CORPUSCULAR HGB CONC 31.7 % (32.0-36.0); MEAN PLATELET VOLUME 7.2 FL (7.0-11.0); MONO % 7.3 % (0.0-8.0); NEUT % 73.2 % (16.0-70.0); PLATELET COUNT 356 TH/MM3 (150-450); RED BLOOD COUNT 4.49 MIL/MM3 (4.50-5.90); RED CELL DISTRIBUTION WIDTH 14.7 % (11.6-17.2); WHITE BLOOD COUNT 13.8 TH/MM3 (4.0-11.0)
[2017-07-22 11:37] LABS: BICARBONATE 35.8 MEQ/L (21.0-32.0); CREATININE 0.94 MG/DL (0.60-1.30); INTERNATIONAL NORMALIZED RATIO 1.1 RATIO
[2017-07-22 13:23] VITALS: BP 129/83
== END 2017-07-22 13:23 | disposition home or self-care (01) ==
LOC: NEPE 09:37
DX: K92.1 Melena (principal); I11.0 Hypertensive heart disease with heart failure; I50.9 Heart failure, unspecified
CPT/HCPCS: 80048; 85025; 85610; 99283

== ENCOUNTER → 2017-09-07 | Outpatient (CLI) | payer MEDICAID ==
[~2017-09-07] MED LIST changes: -LISI-515 PO; -METO50TA PO
--- NOTE | 2017-09-08 09:32 | RSPPFT ---
DATE OF PROCEDURE: 09/07/17 COMMENTS: Spirometry with FVC of 3.0, FEV1 of 2.1, FEV1/FVC ratio at 70%. A positive and significant response to acutely inhaled bronchodilator noted. Lung volumes were not performed. Diffusion capacity is 69% of predicted and normal when corrected for alveolar volume. IMPRESSION: 1. Moderate airways obstruction. 2. Positive and significant response to acutely inhaled bronchodilator. 3. Adequate oxygenation. 4. Presence of hypercapnia with PCO2 of 61 on room air with normal PO2 at 74. 5. Reduced diffusion capacity and normal when corrected for alveolar volume.
== END ==
LOC: HRSP 09:54
PROVIDERS: ATTEND Internal Medicine Sleep Medicine
DX: R06.09 Other forms of dyspnea (principal)
CPT/HCPCS: 36600; 82805; 94060; 94729